=== PATIENT | male | born 1935 | race Caucasian/White ===

== ENCOUNTER 2022-02-13 15:42 | Outpatient (CLI) | payer MEDICARE, BC, SELFPAY | END 2022-02-13 15:43 | disposition home or self-care (01) | LOC: AMB 02-18 19:16 | PROVIDERS: PCP Family Medicine; Visit Provider Family Medicine | DX: R53.1 Weakness (principal) ==

== ENCOUNTER 2022-02-13 18:40 | Outpatient (CLI) | payer MEDICARE, BC, SELFPAY | END 2022-02-13 18:41 | disposition home or self-care (01) | LOC: AMB 02-18 19:44 | PROVIDERS: PCP Family Medicine; Visit Provider Family Medicine | DX: R53.1 Weakness (principal) | CPT/HCPCS: A0425; A0427 ==

== ENCOUNTER 2022-02-13 19:18 | Inpatient (IN) | payer MEDICARE, BC, SELFPAY ==
[2022-02-13 19:27] VITALS: BP 143/54; PULSE 80; RESP 18; TEMP 36.8; O2SAT 96
--- NOTE | 2022-02-13 19:42 | ED.WEAKNESS ---
HPI - Weakness General Chief complaint: Weakness Stated complaint: Weakness Time Seen by Provider: 02/13/22 19:29 History of Present Illness HPI Narrative: This 86-year-old male comes in by ambulance because of generalized weakness that apparently began today. He states that he normally ambulates with a cane but had difficulty doing so today. He reports some knee pain which is chronic. There is no new injury or worsening in this regard. He denies having any fevers. He denies any symptoms of dysuria however the triage report states that his urine was darker recently. He does appear to be incontinent of urine. Related Data Allergies Allergy/AdvReac Type Severity Reaction Status Date / Time No Known Drug Allergies Allergy Verified 02/13/22 19:33 Review of Systems Status of ROS: Reports: 10 or more systems reviewed and unremarkable except as noted in History and below Narrative: Review of systems is limited as patient is a poor historian. Exam Narrative: Exam Narrative: Constitutional: Well-developed, well-nourished, no acute distress. HEENT: Normocephalic, atraumatic. Neck: Normal range of motion. Nontender. Supple. Heart: Regular. No murmurs. Normal rate. Intact distal pulses. Lungs: Clear to auscultation. No chest discomfort. No wheezes, rhonchi, or rales. Abdomen: Normal bowel sounds. Nontender. No rebound tenderness. Genitalia: Deferred. Back: No midline tenderness. Normal range of motion. Extremities: Normal range of motion. No injury. Skin: Intact. No rash. Warm. No erythema or pallor. Neurologic: No altered sensation.. Psychiatric: No suicidality. No anxiety or depression. No insomnia. Nursing notes and vitals signs are reviewed. Const: Vital Signs, click to edit/add: Vital Signs - 24 hr 02/13/22 19:27 Temperature 98.2 F Pulse Rate [Left P ulse Oximeter] 80 Respiratory Rate 18 Blood Pressure [Ri ght Upper Arm] 143/54 H Pulse Oximetry 96 Course Vital Signs Vital signs: Initial Vital Signs Temperature 98.2 F 02/13/22 19:27 Temperature Source Temporal Artery Scan 02/13/22 19:27 Pulse Rate 80 02/13/22 19:27 Pulse Rhythm 02/13/22 19:27 Respiratory Rate 18 02/13/22 19:27 Blood Pressure 143/54 H 02/13/22 19:27 Blood Pressure Mean 83 02/13/22 19:27 Blood Pressure Position Semi-Fowlers 02/13/22 19:27 Pulse Oximetry 96 02/13/22 19:27 Oxygen Delivery Method 02/13/22 19:27 Vital Signs Temperature 98.2 F 02/13/22 19:27 Pulse Rate 80 02/13/22 19:27 Respiratory Rate 18 02/13/22 19:27 Blood Pressure 143/54 H 02/13/22 19:27 Pulse Oximetry 96 02/13/22 19:27 Temperature 98.2 F 02/13/22 19:27 Pulse Rate 80 02/13/22 19:27 Respiratory Rate 18 02/13/22 19:27 Blood Pressure 143/54 H 02/13/22 19:27 Pulse Oximetry 96 02/13/22 19:27 MDM - Weakness MDM Narrative Medical decision making narrative: This patient comes in reporting generalized weakness today. He arrives with normal vital signs and does not have any complaints except he states that he has knees that have been replaced but they were giving him some pain. Lab results returned with reassuring findings. There are no explanations in his labs or vital signs to explain his feeling of weakness. The patient states that he feels okay to return home and is reassured with these results. He does state that his knees have been giving him problems in this may be more of the focus for his report of being weak. Lab Data Labs: Lab Results 02/13/22 02/13/22 02/13/22 Range/Units 20:30 20:30 20:55 WBC 6.78 (4.50-11.00) K/uL RBC 3.08 L (4.30-5.90) m/uL Hgb 10.1 L (13.5-17.5) gm/dL Hct 30.8 L (37.0-53.0) % MCV 100 (80-100) fL MCH 33 (26-34) pg MCHC 33 (32-36) gm/dL RDW Coeff of Erna 13.0 (11.5-15.5) % Plt Count 177 (140-440) K/uL Neut % (Auto) 78.7 H (42.0-72.0) % Lymph % (Auto) 10.3 L (20-44) % [place] % (Auto) 10.6 (0.0-11.0) % Eos % (Auto) 0.0 (0.0-7.0) % Baso % (Auto) 0.1 (0.0-3.0) % Neut # (Auto) 5.30 (1.7-7.0) K/uL Lymph # (Auto) 0.70 L (0.90-2.90) K/uL [place] # (Auto) 0.70 (0.00-0.90) K/UL Eos # (Auto) 0.00 (0.00-0.50) K/uL Baso # (Auto) 0.01 (0.00-0.30) K/uL Abs Immat Gran (auto) 0.02 (0.00-0.30) K/uL Sodium 138 (135-149) mmol/L Potassium 3.6 (3.6-5.1) mmol/L Chloride 108 (96-114) mmol/L Carbon Dioxide 21 (20-32) mmol/L BUN 41 H (7-30) mg/dL Creatinine 1.6 H (0.5-1.5) mg/dL Estimated GFR 42 ml/min Glucose 173 H (60-115) mg/dL Calcium 8.9 (8.4-10.6) mg/dL Urine Color Yellow (Yellow) Urine Appearance Clear (Clear) Urine pH 5.5 (5.0-8.5) Ur Specific [place] 1.015 (1.000-1.030) Urine Protein 1+ A (Negative) Urine Glucose (UA) Negative (Negative) Urine Ketones Negative (Negative) Urine Blood 2+ A (Negative) Urine Nitrite Negative (Negative) Urine Bilirubin Negative (Negative) Urine Urobilinogen 0.2 (0.2-1.0) Ur Leukocyte Esterase Negative (Negative) Urine RBC 0-2 (0-2) Urine WBC 0-2 (0-5) Ur Squamous Epith Cells None (None-Few) Urine Bacteria None (None) Discharge Plan Discharge Clinical Impression: Weakness Patient Disposition: Home, Self-Care Condition: Stable Instructions: Weakness (ED) Additional Instructions: Continue current plans. Follow up with MD or return if worsening symptoms happen. Follow Up/Referrals: Jesus Zapien MD [Primary Care Provider] - Stand Alone Forms: [employer] Info Instructions
[2022-02-13 21:19] LABS: Basophils Absolute Auto 0.01 K/uL (0.00-0.30); Basophils Percent Auto 0.1 % (0.0-3.0); Hematocrit 30.8 % (37.0-53.0); Hemoglobin* 10.1 gm/dL (13.5-17.5); Immature Granulocytes Abs Auto 0.02 K/uL (0.00-0.30); Lymphocytes Percent Auto 10.3 % (20-44); Mean Corpuscular HGB Conc 33 gm/dL (32-36); Mean Corpuscular Hemoglobin 33 pg (26-34); Mean Corpuscular Volume 100 fL (80-100); Monocytes Percent Auto 10.6 % (0.0-11.0); Neutrophils Percent Auto 78.7 % (42.0-72.0); Platelet Count* 177 K/uL (140-440); Red Blood Count 3.08 m/uL (4.30-5.90); White Blood Count* 6.78 K/uL (4.50-11.00)
[2022-02-13 21:21] LABS: Appearance Urine Clear (Clear); Bilirubin Urine Negative (Negative); Blood Urine 2+ (Negative); Color Urine Yellow (Yellow); Glucose Urine Negative (Negative); Ketones Urine Negative (Negative); Leukocyte Esterase Urine Negative (Negative); Nitrite Urine Negative (Negative); Protein Urine 1+ (Negative); Specific Gravity Urine 1.015 (1.000-1.030); Urobilinogen Urine 0.2 (0.2-1.0); pH Urine 5.5 (5.0-8.5)
[2022-02-13 21:27] LABS: Slide Review Reflex No
[2022-02-13 21:28] LABS: RBC Urine 0-2 (0-2); WBC Urine 0-2 (0-5)
[2022-02-13 21:40] LABS: Chloride* 108 mmol/L (96-114); Potassium* 3.6 mmol/L (3.6-5.1); Sodium* 138 mmol/L (135-149)
[2022-02-13 21:41] LABS: Blood Urea Nitrogen* 41 mg/dL (7-30); Calcium* 8.9 mg/dL (8.4-10.6); Carbon Dioxide* 21 mmol/L (20-32); Creatinine* 1.6 mg/dL (0.5-1.5); Estimated Glomerular Filt Rate 42 ml/min; Glucose* 173 mg/dL (60-115)
[2022-02-13 23:58] LABS: PCR FLU A Negative PCR FLU A (Negative); PCR FLU B Negative PCR FLU B (Negative); SARS PCR* POSITIVE SARS-CoV-2 (Negative)
[2022-02-14] VITALS (7 sets, daily range): BP systolic 131–155; BP diastolic 55–67; PULSE 64–79; RESP 18–20; TEMP 37–37.4; O2SAT 93–96; BMI 26.9
--- NOTE | 2022-02-14 01:20 | ED.NURSE ---
Rosa paged for admission.
--- NOTE | 2022-02-14 01:34 | CRLHL7_ITS ---
For Patients: As a result of the Century Cures Act, medical imaging exams and procedure reports are released immediately into your electronic medical record. You may view this report before your referring provider. If you have questions, please contact your health care provider. INDICATION: Weakness. COMPARISON: 03/03/2017. TECHNIQUE: Chest one-view. FINDINGS: Cardiac silhouette is enlarged. Low lung volumes. Elevation of the right hemidiaphragm. Left basilar retrocardiac atelectasis/consolidation. No significant pleural effusion or pneumothorax. IMPRESSION: Low lung volumes. Elevation of the right hemidiaphragm. Cardiac silhouette enlargement which could be accentuated due to portable technique and low lung volumes. Left basilar atelectasis/consolidation. Dictated by Efrain Singletary MD @ 02/14/2022 3:16:35 AM (Electronically Signed)
--- NOTE | 2022-02-14 02:57 | PM.IMCN1 ---
Date of Consult Primary Care Provider: Jesus Zapien MD Consult Narrative Narrative: Patric Duarte Hospitalist ADMISSION SUPPORT NOTE eHospitalist was contacted by Dr. Vargas with request of admission support. Chief complaint: Cough and weakness HPI: The patient reports that for the past few days he has had cough that has been productive. He had a fall at home because he reports he was in a confined space and could not really move around. He fell on his buttocks. He came to the ED for evaluation and was found to be positive for COVID and per the ED provider he is significantly weak and so is unable to be discharged home because of safety concerns. He does complain of pain in both knees which has been chronic but has been limiting his ability to mobilize. Home Medications: Reviewed see EMR for details Pertinent Medical History: DM2, chronic kidney disease, BPH, paroxysmal SVT, coronary disease, carotid artery disease, cervical degenerative disc disease, chronic lymphocytic leukemia in remission, dyslipidemia, hypertension, anxiety/depression, reflux esophagitis, knee replacement Pertinent Social History: , denies any drugs alcohol or smoking Review of Systems Status of ROS: Reports: 10 or more systems reviewed and unremarkable except as noted in History and below [facility] Medical History (Updated 02/14/22 @ 04:08 by Efrain Diaz MD) BPH (benign prostatic hyperplasia) Chronic kidney disease (CKD) stage G3a/A2, moderately decreased glomerular filtration rate (GFR) between 45-59 mL/min/1.73 square meter and albuminuria creatinine ratio between 30-299 mg/g CLL (chronic lymphocytic leukemia) COVID-19 virus infection Generalized anxiety disorder GERD (gastroesophageal reflux disease) Hypertension Major depression Presbyacusis PSVT (paroxysmal supraventricular tachycardia) Type 2 diabetes mellitus Surgical History (Updated 02/14/22 @ 04:04 by Efrain Diaz MD) History of tonsillectomy History of total knee arthroplasty Social History (Updated 02/14/22 @ 04:05 by Efrain Diaz MD) Narrative: , retired, nonsmoker, Highest level of school completed/degree received: Master's degree Smoking Status: Never smoker Do you use any of these nicotine containing products: None Second hand tobacco smoke exposure: No How often do you have a drink containing alcohol: never How often do you have six or more drinks on one occasion: Never AUDIT-C Alcohol total score: 0 Non-prescribed substance use: denies use Caffeine: Yes (POP 1-2 DAILY) service: Yes Meds Home Medications and Allergies Allergies Allergy/AdvReac Type Severity Reaction Status Date / Time No Known Drug Allergies Allergy Verified 02/13/22 19:33 Exam Narrative: Exam Narrative: Exam (performed via interactive video with assistance of bedside nurse): General: Alert, cooperative, no acute distress HEENT: Oral mucosa pink and moist without erythema Lungs: Clear to auscultation bilaterally without wheeze however crackles at right lung base CV: Regular rate and rhythm without loud murmur rub or gallop Ext: Trace ankle edema Skin: No rashes, bruises or lesions appreciated on gross visualization of exposed skin Neuro: Alert, oriented x 3. CN III -VII, XI, XII grossly intact, moves all extremities without any significant focal deficit appreciated Musc: Bilateral knee swelling worse on left than right, slightly warm to touch Per bedside nurse report Const: Vital Signs, click to edit/add: Vital Signs - 24 hr 02/13/22 19:27 Temperature 98.2 F Pulse Rate [Left P ulse Oximeter] 80 Respiratory Rate 18 Blood Pressure [Ri ght Upper Arm] 143/54 H Pulse Oximetry 96 Labs Labs: Short CBC 02/13/22 Range/Units 20:30 WBC 6.78 (4.50-11.00) K/uL Hgb 10.1 L (13.5-17.5) gm/dL Hct 30.8 L (37.0-53.0) % Plt Count 177 (140-440) K/uL BMP 02/13/22 20:30 Sodium 138 Potassium 3.6 Chloride 108 Carbon Dioxide 21 BUN 41 H Creatinine 1.6 H Glucose 173 H Calcium 8.9 Urine 02/13/22 Range/Units 20:55 Urine Color Yellow (Yellow) Urine Appearance Clear (Clear) Urine pH 5.5 (5.0-8.5) Ur Specific [place] 1.015 (1.000-1.030) Urine Protein 1+ A (Negative) Urine Glucose (UA) Negative (Negative) Assessment and Plan Assessment and plan (1) COVID-19 virus infection: Status: Acute (2) Weakness: Status: Acute Plan Assessment and Plan: 1. Weakness-likely secondary to COVID infection with combination of chronic knee pain. Continue supportive care 2. COVID infection-continue supportive care. He reports being vaccinated and bolstered 3. DM2-placed on sliding scale insulin. Stable 4. Depression-stable continue antidepressants once medications reconciled 5. BPH-stable continue Flomax once reconciled 6. CLL-stable in remission 7. Coronary artery disease-stable monitor 8. CKD-stable monitor 9. Dyslipidemia-stable continue statin once reconciled 10. Hypertension-stable continue antihypertensive once medications reconciled 11. Reflux esophagitis-continue Protonix 12. DVT prophylaxis-Lovenox 13. CODE STATUS full code per documentation Chart review was performed as well as evaluation of the patient via video. Thank you for involving ehospitalist. Please contact [phone] if further assistance is needed.
--- NOTE | 2022-02-14 04:06 | ED_ITS ---
HPI - General Adult General Chief complaint: Weakness Stated complaint: Weakness Time Seen by Provider: 02/13/22 19:29 Related Data Allergies Allergy/AdvReac Type Severity Reaction Status Date / Time No Known Drug Allergies Allergy Verified 02/13/22 19:33 [facility] Medical History (Updated 02/14/22 @ 04:08 by Efrain Diaz MD) BPH (benign prostatic hyperplasia) Chronic kidney disease (CKD) stage G3a/A2, moderately decreased glomerular filtration rate (GFR) between 45-59 mL/min/1.73 square meter and albuminuria creatinine ratio between 30-299 mg/g CLL (chronic lymphocytic leukemia) COVID-19 virus infection Generalized anxiety disorder GERD (gastroesophageal reflux disease) Hypertension Major depression Presbyacusis PSVT (paroxysmal supraventricular tachycardia) Type 2 diabetes mellitus Surgical History (Updated 02/14/22 @ 04:04 by Efrain Diaz MD) History of tonsillectomy History of total knee arthroplasty Social History (Updated 02/14/22 @ 04:05 by Efrain Diaz MD) Narrative: , retired, nonsmoker, Highest level of school completed/degree received: Master's degree Smoking Status: Never smoker Do you use any of these nicotine containing products: None Second hand tobacco smoke exposure: No How often do you have a drink containing alcohol: never How often do you have six or more drinks on one occasion: Never AUDIT-C Alcohol total score: 0 Non-prescribed substance use: denies use Caffeine: Yes (POP 1-2 DAILY) service: Yes Exam Const: Vital Signs, click to edit/add: Vital Signs - 24 hr 02/13/22 19:27 Temperature 98.2 F Pulse Rate [Left P ulse Oximeter] 80 Respiratory Rate 18 Blood Pressure [Ri ght Upper Arm] 143/54 H Pulse Oximetry 96 Course Vital Signs Vital signs: Initial Vital Signs Temperature 98.2 F 02/13/22 19:27 Temperature Source Temporal Artery Scan 02/13/22 19:27 Pulse Rate 80 02/13/22 19:27 Pulse Rhythm 02/13/22 19:27 Respiratory Rate 18 02/13/22 19:27 Blood Pressure 143/54 H 02/13/22 19:27 Blood Pressure Mean 83 02/13/22 19:27 Blood Pressure Position Semi-Fowlers 02/13/22 19:27 Pulse Oximetry 96 02/13/22 19:27 Oxygen Delivery Method 02/13/22 19:27 Vital Signs Temperature 98.2 F 02/13/22 19:27 Pulse Rate 80 02/13/22 19:27 Respiratory Rate 18 02/13/22 19:27 Blood Pressure 143/54 H 02/13/22 19:27 Pulse Oximetry 96 02/13/22 19:27 Temperature 99.4 F 02/14/22 03:44 Pulse Rate 79 02/14/22 03:44 Respiratory Rate 20 02/14/22 03:44 Blood Pressure 155/67 H 02/14/22 03:44 Pulse Oximetry 96 02/14/22 03:44 Medical Decision Making Lab Data Labs: Lab Results 02/13/22 02/13/22 02/13/22 Range/Units 20:30 20:30 20:55 WBC 6.78 (4.50-11.00) K/uL RBC 3.08 L (4.30-5.90) m/uL Hgb 10.1 L (13.5-17.5) gm/dL Hct 30.8 L (37.0-53.0) % MCV 100 (80-100) fL MCH 33 (26-34) pg MCHC 33 (32-36) gm/dL RDW Coeff of Erna 13.0 (11.5-15.5) % Plt Count 177 (140-440) K/uL Neut % (Auto) 78.7 H (42.0-72.0) % Lymph % (Auto) 10.3 L (20-44) % [place] % (Auto) 10.6 (0.0-11.0) % Eos % (Auto) 0.0 (0.0-7.0) % Baso % (Auto) 0.1 (0.0-3.0) % Neut # (Auto) 5.30 (1.7-7.0) K/uL Lymph # (Auto) 0.70 L (0.90-2.90) K/uL [place] # (Auto) 0.70 (0.00-0.90) K/UL Eos # (Auto) 0.00 (0.00-0.50) K/uL Baso # (Auto) 0.01 (0.00-0.30) K/uL Abs Immat Gran (auto) 0.02 (0.00-0.30) K/uL Sodium 138 (135-149) mmol/L Potassium 3.6 (3.6-5.1) mmol/L Chloride 108 (96-114) mmol/L Carbon Dioxide 21 (20-32) mmol/L BUN 41 H (7-30) mg/dL Creatinine 1.6 H (0.5-1.5) mg/dL Estimated GFR 42 ml/min Glucose 173 H (60-115) mg/dL Calcium 8.9 (8.4-10.6) mg/dL Urine Color Yellow (Yellow) Urine Appearance Clear (Clear) Urine pH 5.5 (5.0-8.5) Ur Specific [place] 1.015 (1.000-1.030) Urine Protein 1+ A (Negative) Urine Glucose (UA) Negative (Negative) Urine Ketones Negative (Negative) Urine Blood 2+ A (Negative) Urine Nitrite Negative (Negative) Urine Bilirubin Negative (Negative) Urine Urobilinogen 0.2 (0.2-1.0) Ur Leukocyte Esterase Negative (Negative) Urine RBC 0-2 (0-2) Urine WBC 0-2 (0-5) Ur Squamous Epith Cells None (None-Few) Urine Bacteria None (None) SARS-CoV-2 (PCR) (Negative) Influenza Type A (PCR) (Negative) Influenza Type B (PCR) (Negative) 02/13/22 Range/Units 22:40 WBC (4.50-11.00) K/uL RBC (4.30-5.90) m/uL Hgb (13.5-17.5) gm/dL Hct (37.0-53.0) % MCV (80-100) fL MCH (26-34) pg MCHC (32-36) gm/dL RDW Coeff of Erna (11.5-15.5) % Plt Count (140-440) K/uL Neut % (Auto) (42.0-72.0) % Lymph % (Auto) (20-44) % [place] % (Auto) (0.0-11.0) % Eos % (Auto) (0.0-7.0) % Baso % (Auto) (0.0-3.0) % Neut # (Auto) (1.7-7.0) K/uL Lymph # (Auto) (0.90-2.90) K/uL [place] # (Auto) (0.00-0.90) K/UL Eos # (Auto) (0.00-0.50) K/uL Baso # (Auto) (0.00-0.30) K/uL Abs Immat Gran (auto) (0.00-0.30) K/uL Sodium (135-149) mmol/L Potassium (3.6-5.1) mmol/L Chloride (96-114) mmol/L Carbon Dioxide (20-32) mmol/L BUN (7-30) mg/dL Creatinine (0.5-1.5) mg/dL Estimated GFR ml/min Glucose (60-115) mg/dL Calcium (8.4-10.6) mg/dL Urine Color (Yellow) Urine Appearance (Clear) Urine pH (5.0-8.5) Ur Specific [place] (1.000-1.030) Urine Protein (Negative) Urine Glucose (UA) (Negative) Urine Ketones (Negative) Urine Blood (Negative) Urine Nitrite (Negative) Urine Bilirubin (Negative) Urine Urobilinogen (0.2-1.0) Ur Leukocyte Esterase (Negative) Urine RBC (0-2) Urine WBC (0-5) Ur Squamous Epith Cells (None-Few) Urine Bacteria (None) SARS-CoV-2 (PCR) POSITIVE SARS-CoV-2 A (Negative) Influenza Type A (PCR) Negative PCR FLU A (Negative) Influenza Type B (PCR) Negative PCR FLU B (Negative) Discharge Plan Discharge Clinical Impression: Weakness Patient Disposition: Admitted As Inpatient Condition: Stable
[2022-02-14] MEDS: 0.9 % SODIUM CHLORIDE 1000 ml 1,000 ML 100 ML IV ×2 (04:44→15:07)
[2022-02-14] MEDS: ACETAMINOPHEN 325 MG TABLET 650 MG PO ×2 (04:47→15:57)
[2022-02-14 07:20] LABS: Basophils Absolute Auto 0.01 K/uL (0.00-0.30); Basophils Percent Auto 0.2 % (0.0-3.0); Hematocrit 26.5 % (37.0-53.0); Hemoglobin* 8.8 gm/dL (13.5-17.5); Immature Granulocytes Abs Auto 0.01 K/uL (0.00-0.30); Lymphocytes Percent Auto 15.8 % (20-44); Mean Corpuscular HGB Conc 33 gm/dL (32-36); Mean Corpuscular Hemoglobin 33 pg (26-34); Mean Corpuscular Volume 99 fL (80-100); Monocytes Percent Auto 13.8 % (0.0-11.0); Neutrophils Absolute Auto 3.87 K/uL (1.7-7.0); Platelet Count* 157 K/uL (140-440); RDW Coefficient of Variation % 12.9 % (11.5-15.5); Red Blood Count 2.67 m/uL (4.30-5.90); White Blood Count* 5.52 K/uL (4.50-11.00)
[2022-02-14 07:22] LABS: Slide Review Reflex No
[2022-02-14 07:30] LABS: Albumin* 3.1 g/dL (3.3-5.0); Chloride* 112 mmol/L (96-114); Sodium* 137 mmol/L (135-149)
[2022-02-14 07:31] LABS: Potassium* 3.1 mmol/L (3.6-5.1)
[2022-02-14 07:33] LABS: Alanine Aminotransferase* 14 U/L (4-50); Alkaline Phosphatase* 53 U/L (40-150); Aspartate Amino Transferase* 43 U/L (12-35); Bilirubin Total* 0.3 mg/dL (0.1-1.5); Blood Urea Nitrogen* 36 mg/dL (7-30); Carbon Dioxide* 19 mmol/L (20-32); Creatinine* 1.5 mg/dL (0.5-1.5); Est. Creatinine Clearance* 35.35; Estimated Glomerular Filt Rate 45 ml/min; Glucose* 132 mg/dL (60-115); Total Protein* 5.2 g/dL (6.0-8.3)
[2022-02-14 07:34] LABS: Calcium* 8.4 mg/dL (8.4-10.6)
--- NOTE | 2022-02-14 08:42 | PC.NURSE ---
END OF SHIFT NOTE: PT PLEASANT AND COOPERATIVE. PT USED URINAL. PT HAD ONE CLOT IN FIRST VOID ON THE FLOOR. NO SUBSEQUENT BLOOD CLOTS NOTED. PT DENIES CHEST PAIN, SOB, N/V. VSS AND WNL ON RA; AFEBRILE. PT C/O LEFT KNEE PAIN (CHRONIC). RELIEF FROM PRN TYLENOL. NOORVIK, WEARS BILATERAL HEARING AIDES. C/O WEAKNESS.
--- NOTE | 2022-02-14 09:20 | PC.NURSE ---
P/C from daughter Chantell, wondering if pt. will be started on any supportive medications r/t COVID infection. Updated MD. Pt. noted would like to make sure venlafaxine is administered today. Verbal order from Dr. Beebe received, entered by pharmacy. Other home meds not yet verified.
[2022-02-14] MEDS: VENLAFAXINE HCL 37.5 MG TABLET PO (09:49)
--- NOTE | 2022-02-14 11:24 | PM.IMHP1 ---
Hospitalist- H&P: HPI History of Present Illness Time Seen by Provider: 11:24 Date Seen: 02/14/22 Chief complaint: Weakness Narrative: Carlos Hill is a 86 year old male who comes in with 2-3 days generalized weakness and fatigue. Evaluation in the emergency room showed evidence COVID-19. Patient had mild anemia noted on his lab work as well as mild hypokalemia. He does have evidence of chronic renal insufficiency with creatinine 1.5. Patient has no other specific complaints but has been increasingly weak and frail over the last 2-3 days. Patient normally lives independently with his in [facility]. No other complaints noted. Review of Systems Status of ROS: Reports: 10 or more systems reviewed and unremarkable except as noted in History and below [facility] Medical History (Updated 02/14/22 @ 11:28 by Lázaro Beebe MD) Anemia BPH (benign prostatic hyperplasia) Chronic kidney disease (CKD) stage G3a/A2, moderately decreased glomerular filtration rate (GFR) between 45-59 mL/min/1.73 square meter and albuminuria creatinine ratio between 30-299 mg/g CLL (chronic lymphocytic leukemia) COVID-19 virus infection Generalized anxiety disorder GERD (gastroesophageal reflux disease) Hypertension Major depression Presbyacusis PSVT (paroxysmal supraventricular tachycardia) Type 2 diabetes mellitus Surgical History History of tonsillectomy History of total knee arthroplasty Social History Narrative: , retired, nonsmoker, Highest level of school completed/degree received: Master's degree Smoking Status: Never smoker Do you use any of these nicotine containing products: None Second hand tobacco smoke exposure: No How often do you have a drink containing alcohol: never How often do you have six or more drinks on one occasion: Never AUDIT-C Alcohol total score: 0 Non-prescribed substance use: denies use Caffeine: Yes (POP 1-2 DAILY) service: Yes Meds Home Medications and Allergies Home Medications Medication Instructions Recorded Confirmed Type amlodipine 10 mg tablet 10 mg PO DAILY 02/14/22 02/14/22 History aspirin 81 mg tablet,delayed 81 mg PO DAILY 02/14/22 02/14/22 History release (Adult Aspirin Regimen) atorvastatin 40 mg tablet 40 mg PO HS 02/14/22 02/14/22 History fosinopril 40 mg tablet 40 mg PO DAILY 02/14/22 02/14/22 History furosemide 20 mg tablet 20 mg PO 3XW PRN 02/14/22 02/14/22 History gemfibrozil 600 mg tablet 600 mg PO BIDWM 02/14/22 02/14/22 History glipizide 10 mg tablet 10 mg PO DAILY 02/14/22 02/14/22 History hydrochlorothiazide 50 mg tablet 50 mg PO DAILY 02/14/22 02/14/22 History metformin 500 mg tablet 500 mg PO DAILY 02/14/22 02/14/22 History metoprolol tartrate 25 mg tablet 25 mg PO BID 02/14/22 02/14/22 History omeprazole 20 mg capsule,delayed 20 mg PO DAILY 02/14/22 02/14/22 History release pioglitazone 30 mg tablet 30 mg PO DAILY 02/14/22 02/14/22 History timolol maleate 0.5 % eye drops 1 drp OPHTHALMIC (EYE) BID 02/14/22 02/14/22 History venlafaxine 37.5 mg tablet 37.5 mg PO DAILY 02/14/22 02/14/22 History vibegron 75 mg tablet (Gemtesa) 75 mg PO DAILY 02/14/22 02/14/22 History Allergies Allergy/AdvReac Type Severity Reaction Status Date / Time No Known Drug Allergies Allergy Verified 02/13/22 19:33 Exam Narrative: Exam Narrative: EXAM GENERAL: Patient appears comfortable and well. EYES: No scleral icterus. LYMPH: No supraclavicular or cervical lymphadenopathy. SKIN: Visible skin seen during exam normal or with benign process only. EXT: No dependent lower extremity pedal edema. HEART: Regular rate and rhythm with no murmurs, rubs, or gallops. LUNGS: Clear to auscultation bilaterally with no crackles or wheezes. ABD: Soft, non tender, non distended. PSYCH: Good eye contact, speech is not pressured. Const: Vital Signs, click to edit/add: Vital Signs - 24 hr 02/13/22 19:27 02/14/22 03:44 02/14/22 07:52 Temperature 98.2 F 99.4 F 99.1 F Pulse Rate [Blood Pressure Cuff] 79 79 Pulse Rate [Left P ulse Oximeter] 80 Pulse Rate [Pulse Oximeter] 79 79 Respiratory Rate 18 20 20 Blood Pressure [Le ft Arm] 155/67 H 131/62 Blood Pressure [Ri ght Upper Arm] 143/54 H Pulse Oximetry 96 96 93 Hospitalist - H&P: Result Labs Labs: Short CBC 02/13/22 02/14/22 Range/Units 20:30 06:51 WBC 6.78 5.52 (4.50-11.00) K/uL Hgb 10.1 L 8.8 L (13.5-17.5) gm/dL Hct 30.8 L 26.5 L (37.0-53.0) % Plt Count 177 157 (140-440) K/uL BMP 02/13/22 02/14/22 20:30 06:51 Sodium 138 137 Potassium 3.6 3.1 L Chloride 108 112 Carbon Dioxide 21 19 L BUN 41 H 36 H Creatinine 1.6 H 1.5 Glucose 173 H 132 H Calcium 8.9 8.4 Liver Function 02/14/22 Range/Units 06:51 Total Bilirubin 0.3 (0.1-1.5) mg/dL AST 43 H (12-35) U/L ALT 14 (4-50) U/L Alkaline Phosphatase 53 (40-150) U/L Albumin 3.1 L (3.3-5.0) g/dL Urine 02/13/22 Range/Units 20:55 Urine Color Yellow (Yellow) Urine Appearance Clear (Clear) Urine pH 5.5 (5.0-8.5) Ur Specific [place] 1.015 (1.000-1.030) Urine Protein 1+ A (Negative) Urine Glucose (UA) Negative (Negative) Assessment and Plan Assessment and plan (1) COVID-19 virus infection: Status: Acute Assessment and Plan: No signs of hypoxia. His chest x-ray is unremarkable. At this time a will continue symptomatic care with isolation consult PT OT. (2) Weakness: Status: Acute Assessment and Plan: As above. (3) Anemia: Status: Acute Assessment and Plan: Encourage good oral intake and follows hemoglobin in the morning. Patient does have CLL. (4) CLL (chronic lymphocytic leukemia): Status: Acute Assessment and Plan: As above. (5) Chronic kidney disease (CKD) stage G3a/A2, moderately decreased glomerular filtration rate (GFR) between 45-59 mL/min/1.73 square meter and albuminuria creatinine ratio between 30-299 mg/g: Status: Acute Assessment and Plan: This appears fairly stable with creatinine of 1 point fine. (6) Hypertension: Status: Acute Assessment and Plan: Continue outpatient management.
[2022-02-14] MEDS: POTASSIUM CHLORIDE 10 MEQ CAPSULE ER 20 MEQ PO ×2 (12:15→17:52)
[2022-02-14] MEDS: METFORMIN 500 MG TABLET PO (12:15)
[2022-02-14] MEDS: glipiZIDE 5 MG TABLET 10 MG PO (12:15)
[2022-02-14] MEDS: AMLODIPINE 10 MG TABLET PO (12:15)
[2022-02-14] MEDS: METOPROLOL TARTRATE 25 MG TABLET PO ×2 (12:15→20:51)
--- NOTE | 2022-02-14 12:36 | PC.NURSE ---
Addendum entered by Farhana Coley RN 02/14/22 15:46: Added: This afternoon pt. able to walk w/walker/belt & SBA to BR. BM today as well as voiding adequately. Denies pain for RN. No more blood noted on brief by RN. Notes feeling slight improvement from AM. Second bag of NS currently infusing for total of 2L. P/C update to juan Abdul today. Questions answered. Original Note: Pt. up w/Ax2 and walker/belt initially to chair, but able to stand w/walker while RN assisted in changing bottoms this morning. More steady second time. Pt. notes new shaking. Temp 99.1 this morning. BGs 108 and 158; sliding scale insulin held d/t restarting of metformin & glipizide @ noon. Declined lunch but took some pudding. Voiding into urinal w/RN assist. Noted to have some old blood spotting on inside of brief, but unsure when this was from. Pt. has been resting off and on. Denies pain. +1 pitting edema in B/L lower extremities, more so in knees (chronic). Updated daughter Chantell via phone.
[2022-02-14] MEDS: gemfibroziL 600 MG TABLET PO (17:52)
[2022-02-14] MEDS: ATORVASTATIN CALCIUM 40 MG TABLET PO (20:51)
[2022-02-14] MEDS: ENOXAPARIN 40 MG/0.4 ML INJ SUBCUT (20:51)
[2022-02-14] MEDS: timoloL maleate 0.5 % 1 DROP EYE-BOTH (20:52)
[2022-02-15] VITALS (7 sets, daily range): BP systolic 108–155; BP diastolic 55–70; PULSE 56–98; RESP 18; TEMP 36.7–37.1; O2SAT 93–98
--- NOTE | 2022-02-15 06:51 | PC.NURSE ---
Alert and orientedx3. Vitals stable overnight. Denies pain. Sats greater than 90% On room air. Ambulating self in the room using a walker. Bedtime BG at 90; given peanut butter sandwich for the night. No other concerns noted overnight.
[2022-02-15 07:22] LABS: Basophils Absolute Auto 0.02 K/uL (0.00-0.30); Basophils Percent Auto 0.3 % (0.0-3.0); Eosinophils Absolute Auto 0.01 K/uL (0.00-0.50); Eosinophils Percent Auto 0.2 % (0.0-7.0); Hematocrit 28.2 % (37.0-53.0); Hemoglobin* 9.4 gm/dL (13.5-17.5); Immature Granulocytes Abs Auto 0.01 K/uL (0.00-0.30); Mean Corpuscular HGB Conc 33 gm/dL (32-36); Mean Corpuscular Hemoglobin 33 pg (26-34); Mean Corpuscular Volume 99 fL (80-100); Monocytes Percent Auto 16.9 % (0.0-11.0); Neutrophils Absolute Auto 3.67 K/uL (1.7-7.0); Neutrophils Percent Auto 63.4 % (42.0-72.0); Platelet Count* 145 K/uL (140-440); RDW Coefficient of Variation % 12.9 % (11.5-15.5); Red Blood Count 2.84 m/uL (4.30-5.90); White Blood Count* 5.79 K/uL (4.50-11.00)
[2022-02-15 07:41] LABS: Albumin* 3.3 g/dL (3.3-5.0); Chloride* 112 mmol/L (96-114)
[2022-02-15 07:42] LABS: Potassium* 3.8 mmol/L (3.6-5.1); Sodium* 138 mmol/L (135-149)
[2022-02-15 07:44] LABS: Alkaline Phosphatase* 56 U/L (40-150); Aspartate Amino Transferase* 61 U/L (12-35); Bilirubin Total* 0.1 mg/dL (0.1-1.5); Carbon Dioxide* 17 mmol/L (20-32); Creatinine* 1.4 mg/dL (0.5-1.5); Est. Creatinine Clearance* 37.88; Estimated Glomerular Filt Rate 49 ml/min; Total Protein* 5.8 g/dL (6.0-8.3)
[2022-02-15 07:45] LABS: Alanine Aminotransferase* 17 U/L (4-50); Blood Urea Nitrogen* 36 mg/dL (7-30); Calcium* 8.5 mg/dL (8.4-10.6); Glucose* 71 mg/dL (60-115)
[2022-02-15 07:53] LABS: Slide Review Reflex No
[2022-02-15] MEDS: ASPIRIN 81 MG TABLET EC PO (08:17)
[2022-02-15] MEDS: METOPROLOL TARTRATE 25 MG TABLET PO ×2 (08:17→21:25)
[2022-02-15] MEDS: timoloL maleate 0.5 % 1 DROP EYE-BOTH ×2 (08:17→21:26)
[2022-02-15] MEDS: gemfibroziL 600 MG TABLET PO ×2 (08:18→18:20)
[2022-02-15] MEDS: OMEPRAZOLE 20 MG CAPSULE DR PO (08:18)
[2022-02-15] MEDS: glipiZIDE 5 MG TABLET 10 MG PO (08:19)
[2022-02-15] MEDS: POTASSIUM CHLORIDE 10 MEQ CAPSULE ER 20 MEQ PO ×2 (08:19→18:20)
--- NOTE | 2022-02-15 09:43 | PM.IMPN1 ---
Progress Note: A&P Assessment and plan (1) COVID-19 virus infection: Status: Acute Assessment and Plan: Continue symptomatic treatment with isolation. (2) Weakness: Status: Acute Assessment and Plan: PT and OT following. Likely discharge tomorrow to continue outpatient isolation. (3) Anemia: Status: Acute Assessment and Plan: Hemoglobin up from 8 0.8-9.4. (4) CLL (chronic lymphocytic leukemia): Status: Acute Assessment and Plan: Chronic will manage as an outpatient. (5) Chronic kidney disease (CKD) stage G3a/A2, moderately decreased glomerular filtration rate (GFR) between 45-59 mL/min/1.73 square meter and albuminuria creatinine ratio between 30-299 mg/g: Status: Acute Assessment and Plan: Creatinine is stable. (6) Hypertension: Status: Acute Assessment and Plan: Vital signs are quite reasonable. Subjective Time Seen by Provider: 09:43 Date Seen: 02/15/22 Interval history: Patient has made solid progress with regards to PT and OT. He remains asymptomatic from respiratory standpoint from his COVID-19. His hemoglobin has gone up. His electrolytes are stable. He is nearing the point where he can safely be discharged home to continue his isolation. He is not receiving any specific therapy for his COVID-19. Exam Narrative: Exam Narrative: EXAM GENERAL: Patient appears comfortable and well. EYES: No scleral icterus. ENT: Tympanic membranes and oropharynx normal. SKIN: Visible skin seen during exam normal or with benign process only. EXT: No dependent lower extremity pedal edema. HEART: Regular rate and rhythm with no murmurs, rubs, or gallops. LUNGS: Clear to auscultation bilaterally with no crackles or wheezes. ABD: Soft, non tender, non distended. PSYCH: Good eye contact, speech is not pressured. Const: Vital Signs, click to edit/add: Vital Signs - 24 hr 02/14/22 12:19 02/14/22 15:30 02/14/22 21:00 Temperature 98.8 F Pulse Rate [Blood Pressure Cuff] 75 69 Pulse Rate [Pulse Oximeter] 65 69 Respiratory Rate 20 18 18 Blood Pressure [Le ft Arm] 142/55 H 134/59 L Blood Pressure [Ri ght Arm] Pulse Oximetry 94 96 02/14/22 23:00 02/15/22 03:00 02/15/22 08:04 Temperature 98.6 F 98.1 F 98.8 F Pulse Rate [Blood Pressure Cuff] 64 64 Pulse Rate [Pulse Oximeter] 64 98 Respiratory Rate 20 18 18 Blood Pressure [Le ft Arm] 145/58 H 155/70 H Blood Pressure [Ri ght Arm] 108/58 L Pulse Oximetry 93 93 97 Labs Labs: Laboratory Results - last 24 hr 02/15/22 02/15/22 07:05 07:05 WBC 5.79 RBC 2.84 L Hgb 9.4 L Hct 28.2 L MCV 99 MCH 33 MCHC 33 RDW Coeff of Erna 12.9 Plt Count 145 Neut % (Auto) 63.4 Lymph % (Auto) 19.0 L [place] % (Auto) 16.9 H Eos % (Auto) 0.2 Baso % (Auto) 0.3 Neut # (Auto) 3.67 Lymph # (Auto) 1.10 [place] # (Auto) 1.00 H Eos # (Auto) 0.01 Baso # (Auto) 0.02 Abs Immat Gran (auto) 0.01 Sodium 138 Potassium 3.8 Chloride 112 Carbon Dioxide 17 L BUN 36 H Creatinine 1.4 Estimated Creat Clear 37.88 Estimated GFR 49 Glucose 71 Calcium 8.5 Total Bilirubin 0.1 AST 61 H ALT 17 Alkaline Phosphatase 56 Total Protein 5.8 L Albumin 3.3
[2022-02-15] MEDS: PIOGLITAZONE HCL 15 MG TABLET 30 MG PO (10:00)
[2022-02-15] MEDS: VENLAFAXINE HCL 37.5 MG TABLET PO (10:00)
[2022-02-15] MEDS: METFORMIN 500 MG TABLET PO (12:27)
--- NOTE | 2022-02-15 14:29 | PC.NURSE ---
Pt. ambulating in room with walker, transfer belt and SBA. O2 sats 97% RA. Fine crackles to bilateral lung bases. Denies pain.
[2022-02-15] MEDS: ATORVASTATIN CALCIUM 40 MG TABLET PO (21:26)
[2022-02-15] MEDS: ENOXAPARIN 40 MG/0.4 ML INJ SUBCUT (21:26)
--- NOTE | 2022-02-15 22:58 | PC.NURSE ---
End of Shift: Patient pleasant and cooperative. Afebrile. Rating chronic pain in bilateral knees 4/10 and declined PRN pain medication or ice/heat. Up to bathroom and chair with SBA and walker. Tolerating regular diet with no nausea. O2 sats 97-98% on room air.
[2022-02-16 03:10] VITALS: BP 163/65; PULSE 86; RESP 22; TEMP 36.8; O2SAT 91
[2022-02-16] MEDS: OMEPRAZOLE 20 MG CAPSULE DR PO (06:17)
--- NOTE | 2022-02-16 06:41 | PC.NURSE ---
END OF SHIFT NOTE: PT PLEASANT AND COOPERATIVE. VSS AND WNL ON RA; AFEBRILE. AMBULATES WITH CANE OR WALKER AND SBA. NOT USING CALL LIGHT APPROPRIATELY; BED ALARM UTILIZED NOC. PT EXTREMELY [place]. PT USES URINAL AT BEDSIDE. DENIES CHEST PAIN, SOB, N/V.
[2022-02-16 07:31] VITALS: BP 134/81; PULSE 96; RESP 18; TEMP 37.1; O2SAT 97
[2022-02-16] MEDS: FOSINOPRIL SODIUM 20 MG TABLET 40 MG PO (09:04)
[2022-02-16] MEDS: POTASSIUM CHLORIDE 10 MEQ CAPSULE ER 20 MEQ PO (09:04)
[2022-02-16] MEDS: AMLODIPINE 10 MG TABLET PO (09:04)
[2022-02-16] MEDS: hydroCHLOROthiazide 25 MG TABLET 50 MG PO (09:04)
[2022-02-16] MEDS: gemfibroziL 600 MG TABLET PO (09:04)
[2022-02-16] MEDS: ASPIRIN 81 MG TABLET EC PO (09:04)
[2022-02-16] MEDS: VENLAFAXINE HCL 37.5 MG TABLET PO (09:05)
[2022-02-16] MEDS: glipiZIDE 5 MG TABLET 10 MG PO (09:05)
[2022-02-16] MEDS: METOPROLOL TARTRATE 25 MG TABLET PO (09:05)
[2022-02-16] MEDS: PIOGLITAZONE HCL 15 MG TABLET 30 MG PO (09:05)
[2022-02-16] MEDS: timoloL maleate 0.5 % 1 DROP EYE-BOTH (09:05)
--- NOTE | 2022-02-16 09:36 | PM.DS1 ---
DS: Providers Provider Date Seen: 02/16/22 Date of admission: 02/14/22 02:48 Primary care physician: Jesus Zapien MD Admitting Clinician: Efrain Diaz MD Consults: 02/14/22 04:27 Consult to Physical Therapy [CONS] Routine Comment: Reason(s) for PT Consult:: Evaluate Ambulation Any Restrictions?:: Unknown 02/14/22 11:31 Consult to Occupational Therapy [CONS] Routine Comment: Reason(s) for OT Consult:: Difficulty Managing ADLs Any Restrictions?:: No Restrictions Consult to Physical Therapy [CONS] Routine Comment: Reason(s) for PT Consult:: Evaluate Ambulation Any Restrictions?:: No Restrictions Attending Physician on discharge: Efrain Diaz MD DS: Diagnosis Discharge Diagnosis (1) COVID-19 virus infection: Status: Acute (2) Weakness: Status: Acute (3) Anemia: Status: Acute (4) CLL (chronic lymphocytic leukemia): Status: Acute (5) Chronic kidney disease (CKD) stage G3a/A2, moderately decreased glomerular filtration rate (GFR) between 45-59 mL/min/1.73 square meter and albuminuria creatinine ratio between 30-299 mg/g: Status: Acute (6) Hypertension: Status: Acute DS: Summary Hospital Course Hospital Course: Patient is a 86-year-old gentleman who was admitted for weakness related to COVID-19 pneumonia. He had no supplemental oxygen needs. We did place him in isolation and continue his outpatient care as well as physical and occupational therapy. Patient made steady improvement and is now returned to his previous level of activity. He feels well and is ready for discharge home. Status at Discharge Functional status at discharge: independent ambulation Overall status at discharge: patient is back to baseline Time Spent with Patient Time attestation: Total time spent providing and/or coordinating discharge services: Time spent: Greater than 30 minutes Exam Narrative: Exam Narrative: EXAM GENERAL: Patient appears comfortable and well. EYES: No scleral icterus. LYMPH: No supraclavicular or cervical lymphadenopathy. SKIN: Visible skin seen during exam normal or with benign process only. EXT: No dependent lower extremity pedal edema. HEART: Regular rate and rhythm with no murmurs, rubs, or gallops. LUNGS: Clear to auscultation bilaterally with no crackles or wheezes. ABD: Soft, non tender, non distended. PSYCH: Good eye contact, speech is not pressured. Const: Vital Signs, click to edit/add: Vital Signs - 24 hr 02/15/22 12:22 02/15/22 15:00 02/15/22 16:00 Temperature 98.8 F 98.2 F Pulse Rate [Blood Pressure Cuff] Pulse Rate [Pulse Oximeter] 56 L 61 Respiratory Rate 18 18 18 Blood Pressure [Le ft Arm] Blood Pressure [Ri ght Arm] 120/62 124/57 L Pulse Oximetry 97 98 02/15/22 19:00 02/15/22 23:45 02/16/22 03:10 Temperature 98.3 F 98.3 F 98.2 F Pulse Rate [Blood Pressure Cuff] 61 86 Pulse Rate [Pulse Oximeter] 60 Respiratory Rate 18 18 22 Blood Pressure [Le ft Arm] 149/55 H Blood Pressure [Ri ght Arm] 145/70 H 163/65 H Pulse Oximetry 97 97 91 02/16/22 07:31 Temperature 98.7 F Pulse Rate [Blood Pressure Cuff] 96 Pulse Rate [Pulse Oximeter] Respiratory Rate 18 Blood Pressure [Le ft Arm] Blood Pressure [Ri ght Arm] 134/81 Pulse Oximetry 97 Discharge Plan Discharge Disposition: Home, Self-Care Date of Admission: 02/14/22 02:48 Attending Provider on Discharge: Lázaro Beebe Primary Care Provider: Jesus Zapien Condition: Stable Anticipated Discharge Date/Time: 02/16/22 09:34 Discharge Medications: Continued venlafaxine 37.5 mg tablet 37.5 mg PO DAILY 0RF amlodipine 10 mg tablet 10 mg PO DAILY 0RF atorvastatin 40 mg tablet 40 mg PO HS 0RF fosinopril 40 mg tablet 40 mg PO DAILY 0RF furosemide 20 mg tablet 20 mg PO 3XW PRN (Reason: edema) 0RF Label Comments: TAKE 1 TABLET BY MOUTH 3 TIMES EVERY WEEK FOR SWELLING gemfibrozil 600 mg tablet 600 mg PO BIDWM 0RF glipizide 10 mg tablet 10 mg PO DAILY 0RF hydrochlorothiazide 50 mg tablet 50 mg PO DAILY 0RF metformin 500 mg tablet 500 mg PO DAILY 0RF Label Comments: TAKE 1 TABLET BY MOUTH DAILY WITH THE EVENING MEAL metoprolol tartrate 25 mg tablet 25 mg PO BID 0RF omeprazole 20 mg capsule,delayed release(DR/EC) 20 mg PO DAILY 0RF pioglitazone 30 mg tablet 30 mg PO DAILY 0RF timolol maleate 0.5 % drops 1 drp OPHTHALMIC (EYE) BID 0RF Label Comments: INSTILL 1 DROP IN LEFT EYE TWICE DAILY Gemtesa 75 mg tablet 75 mg PO DAILY 0RF Label Comments: TAKE ONE TABLET BY MOUTH ONCE DAILY. aspirin [Adult Aspirin Regimen] 81 mg tablet,delayed release (DR/EC) 81 mg PO DAILY 0RF Discharge Orders: Discharge Order (Routine); Ordered 02/16/22 Ordered By: Lázaro Beebe Patient Education: Weakness (ED) Activity Restrictions/Additional Instructions: Continue current plans. Follow up with MD or return if worsening symptoms happen. Activity Level: No Restrictions Activity Detail: Maintain COVID isolation per protocol Discharge Diet: Regular Follow Up Appointments: Jesus Zapien MD [Primary Care Provider] - None Forms: [employer] Info Instructions
--- NOTE | 2022-02-16 12:21 | PC.NURSE ---
Addendum entered by Monica Mendenhall RN 02/16/22 13:54: Blood glucose this morning @ 0730 was 95. Sliding scale novolog not needed. Original Note: Discharge: Patient pleasant and cooperative. Alert and oriented. Up with SBA and cane. IV removed with catheter intact. Vitals stable and WNL, o2 sat >90% on RA. Discharge instructions given and reviewed, no changes in medication orders. Patient wheeled from floor to own car, discharged @ 1200 to home, left via own private vehicle.
== END 2022-02-16 12:00 | disposition home or self-care (01) | DRG 177 ==
LOC: ED 22:28 → MEDSURG 02-14 02:49
PROVIDERS: Internal Medicine; Admitting Provider Family Medicine; Emergency Provider Emergency Medicine Emergency Medical Services; PCP Family Medicine; Visit Provider Family Medicine
DX: U07.1 COVID-19 (principal); J12.82 Pneumonia due to coronavirus disease 2019; C91.11 Chronic lymphocytic leukemia of B-cell type in remission; I12.9 Hypertensive chronic kidney disease with stage 1 through stage 4 chronic kidney disease, or unspecified chronic kidney disease; E11.22 Type 2 diabetes mellitus with diabetic chronic kidney disease; N18.31 Chronic kidney disease, stage 3a; Z79.4 Long term (current) use of insulin; R53.1 Weakness; N40.0 Benign prostatic hyperplasia without lower urinary tract symptoms; I25.10 Atherosclerotic heart disease of native coronary artery without angina pectoris; K21.00 Gastro-esophageal reflux disease with esophagitis, without bleeding; G89.29 Other chronic pain; M25.569 Pain in unspecified knee; F41.1 Generalized anxiety disorder; F32.9 Major depressive disorder, single episode, unspecified; D64.9 Anemia, unspecified; E87.6 Hypokalemia; E78.5 Hyperlipidemia, unspecified
CPT/HCPCS: 36415; 71045; 80048; 80053; 81001; 85025; 87502; 87635; 97116; 97162; 97165; 97530; 99284; A9270; J1650; J7030

== ENCOUNTER 2023-09-27 14:30 | Outpatient (RCR) | payer MEDICARE, BC, SELFPAY | END 2024-01-25 23:59 | disposition home or self-care (01) | PROVIDERS: PCP Family Medicine; Visit Provider Student in an Organized Health Care Education/Training Program | DX: Z74.09 Other reduced mobility (principal); R53.81 Other malaise; Z51.89 Encounter for other specified aftercare | CPT/HCPCS: 97165; 97530; 97535 ==

== ENCOUNTER 2023-11-14 16:38 | Outpatient (CLI) | payer MEDICARE, BC, SELFPAY | END 2023-11-14 16:39 | disposition home or self-care (01) | LOC: AMB 11-17 12:18 | PROVIDERS: PCP Student in an Organized Health Care Education/Training Program; Visit Provider Emergency Medicine Emergency Medical Services | DX: S79.912A Unspecified injury of left hip, initial encounter (principal); W19.XXXA Unspecified fall, initial encounter; Y92.009 Unspecified place in unspecified non-institutional (private) residence as the place of occurrence of the external cause | CPT/HCPCS: A0425; A0427 ==

== ENCOUNTER 2023-11-14 17:20 | Inpatient (IN) | payer MEDICARE, BC, SELFPAY ==
[2023-11-14 17:28] VITALS: BP 155/78; PULSE 60; RESP 16; TEMP 36.4; O2SAT 98; BMI 26.6
--- NOTE | 2023-11-14 17:39 | XR_ITS ---
Patient: ROSALIO BABIN Facility:?[facility] Patient ID:?[id number] Site Patient ID:?[id number]. Site :?[id number] Study:?XRay-Hip Left 2V-11/14/2023 6:22:10 PM Ordering Physician:YON Final Report: Indication: Fall, pain. Technique: Left hip 3 views. Comparison: None. Findings: Bones: Subtle cortical irregularity of the superior cortex of the left superior pubic ramus labrum suspicious for a fracture. There is may also be a nondisplaced fracture of the left inferior pubic ramus. The left proximal femur appears intact. Alignment is normal. No aggressive osseous lesion. Joint spaces: Mild degenerative changes of the bilateral hips, pubic symphysis, and sacroiliac joints. Lower lumbar spondylosis. Soft tissues: Diffuse vascular calcifications. Impression: Findings suspicious for an nondisplaced left superior and inferior pubic rami fractures. Recommend pelvic or left hip CT for further evaluation. Dictated by Thor Ross MD @ 11/14/2023 7:05:22 PM Signed by:?Thor Ross MD @11/14/2023 7:05:22 PM (Electronic Signature)
--- NOTE | 2023-11-14 17:40 | ED_ITS ---
HPI - Fall General Chief Complaint: Fall/Minor Trauma Stated Complaint: Fall Time Seen by Provider: 11/14/23 17:27 History of Present Illness HPI Narrative: This 88-year-old male comes in with injury to his left hip that occurred at about noon today, about 5 hours prior to arrival. He was getting up from a chair and fell onto his left side. He states he does not have much pain at rest but with any kind of movement or weight-bearing he has significant pain. He does not report any other injury. He did not have loss of consciousness. Related Data Home Medications Medication Instructions Recorded Confirmed amlodipine 10 mg tablet 10 mg PO DAILY 02/14/22 02/14/22 aspirin 81 mg tablet,delayed 81 mg PO DAILY 02/14/22 02/14/22 release (Adult Aspirin Regimen) atorvastatin 40 mg tablet 40 mg PO HS 02/14/22 02/14/22 fosinopril 40 mg tablet 40 mg PO DAILY 02/14/22 02/14/22 furosemide 20 mg tablet 20 mg PO 3XW PRN edema 02/14/22 02/14/22 gemfibrozil 600 mg tablet 600 mg PO BIDWM 02/14/22 02/14/22 glipizide 10 mg tablet 10 mg PO DAILY 02/14/22 02/14/22 hydrochlorothiazide 50 mg tablet 50 mg PO DAILY 02/14/22 02/14/22 metformin 500 mg tablet 500 mg PO DAILY 02/14/22 02/14/22 metoprolol tartrate 25 mg tablet 25 mg PO BID 02/14/22 02/14/22 omeprazole 20 mg capsule,delayed 20 mg PO DAILY 02/14/22 02/14/22 release pioglitazone 30 mg tablet 30 mg PO DAILY 02/14/22 02/14/22 timolol maleate 0.5 % eye drops 1 drp ophthalmic (eye) BID 02/14/22 02/14/22 venlafaxine 37.5 mg tablet 37.5 mg PO DAILY 02/14/22 02/14/22 vibegron 75 mg tablet (Gemtesa) 75 mg PO DAILY 02/14/22 02/14/22 Allergies Allergy/AdvReac Type Severity Reaction Status Date / Time No Known Drug Allergies Allergy Verified 02/13/22 19:33 Review of Systems Status of ROS: Reports: 10 or more systems reviewed and unremarkable except as noted in History and below Narrative: Constitutional: No fevers, no weight gain or loss. Eyes: No discharge. No vision changes. HENT: No congestion, no sore throat, no ear pain. Cardiovascular: No chest pain, no palpitations. Respiratory: No shortness of breath, no wheezes, no cough. Gastrointestinal: No abdominal pain, no vomiting, no diarrhea. Genitourinary: No dysuria, no hematuria. Musculoskeletal: Left hip injury as described above. Skin: No rashes, no pruritis. Neurological: No dizziness, weakness, sensory change, speech change. Endo/Heme/Allergies: No bruising or bleeding. No polydipsia. Pysch: no suicidality, no anxiety, no insomnia. All other systems reviewed and are negative. [facility] Medical History (Updated 11/14/23 @ 19:35 by Manjit Momin MD) Anemia ?D64.9 - Anemia, unspecified (ICD-10) COVID-19 virus infection ?U07.1 - COVID-19 (ICD-10) BPH (benign prostatic hyperplasia) ?N40.0 - Benign prostatic hyperplasia without lower urinary tract symptoms (ICD-10) Generalized anxiety disorder ?F41.1 - Generalized anxiety disorder (ICD-10) Major depression ?F32.9 - Major depressive disorder, single episode, unspecified (ICD-10) GERD (gastroesophageal reflux disease) ?K21.9 - Gastro-esophageal reflux disease without esophagitis (ICD-10) CLL (chronic lymphocytic leukemia) ?C91.10 - Chronic lymphocytic leukemia of B-cell type not having achieved remission (ICD-10) Chronic kidney disease (CKD) stage G3a/A2, moderately decreased glomerular filtration rate (GFR) between 45-59 mL/min/1.73 square meter and albuminuria creatinine ratio between 30-299 mg/g ?N18.31 - Chronic kidney disease, stage 3a (ICD-10) Type 2 diabetes mellitus ?E11.9 - Type 2 diabetes mellitus without complications (ICD-10) PSVT (paroxysmal supraventricular tachycardia) ?I47.1 - Supraventricular tachycardia (ICD-10) Presbyacusis ?H91.10 - Presbycusis, unspecified ear (ICD-10) Hypertension ?I10 - Essential (primary) hypertension (ICD-10) Surgical History History of tonsillectomy ?Z90.89 - Acquired absence of other organs (ICD-10) History of total knee arthroplasty ?Z96.659 - Presence of unspecified artificial knee joint (ICD-10) Social History Narrative: , retired, nonsmoker, Highest level of school completed/degree received: Master's degree Smoking Status: Never smoker Do you use any of these nicotine containing products: None Second hand tobacco smoke exposure: No How often do you have a drink containing alcohol: never How often do you have six or more drinks on one occasion: Never AUDIT-C Alcohol total score: 0 Non-prescribed substance use: denies use Caffeine: Yes (POP 1-2 DAILY) service: Yes Exam Narrative: Exam Narrative: Constitutional: Well-developed, well-nourished, no acute distress. HEENT: Normocephalic, atraumatic. Neck: Normal range of motion. Nontender. Supple. Heart: Regular. No murmurs. Normal rate. Intact distal pulses. Lungs: Clear to auscultation. No chest discomfort. No wheezes, rhonchi, or rales. Abdomen: Normal bowel sounds. Nontender. No rebound tenderness. Genitalia: Deferred. Back: No midline tenderness. Normal range of motion. Extremities: Mild to moderate discomfort when log-rolling his left leg. He has distinct pain when attempting to lift his Left leg from the bed. Skin: Intact. No rash. Warm. No erythema or pallor. Neurologic: No altered sensation. No weakness. Alert and oriented. Psychiatric: No suicidality. No anxiety or depression. No insomnia. Nursing notes and vitals signs are reviewed. Const: Vital Signs, click to edit/add: Vital Signs - 24 hr 11/14/23 17:28 Temperature 97.5 F L Pulse Rate [Pulse Oximeter] 60 Respiratory Rate 16 Blood Pressure [Ri ght Upper Arm] 155/78 H Pulse Oximetry 98 Oxygen Delivery Me thod Room Air Course Vital Signs Vital signs: Initial Vital Signs Temperature 97.5 F L 11/14/23 17:28 Temperature Source Temporal Artery Scan 11/14/23 17:28 Pulse Rate 60 11/14/23 17:28 Pulse Rhythm Regular 11/14/23 17:28 Respiratory Rate 16 11/14/23 17:28 Blood Pressure 155/78 H 11/14/23 17:28 Blood Pressure Mean 103 11/14/23 17:28 Blood Pressure Position Sitting 11/14/23 17:28 Pulse Oximetry 98 11/14/23 17:28 Oxygen Delivery Method Room Air 11/14/23 17:28 Vital Signs Temperature 97.5 F L 11/14/23 17:28 Pulse Rate 60 11/14/23 17:28 Respiratory Rate 16 11/14/23 17:28 Blood Pressure 155/78 H 11/14/23 17:28 Pulse Oximetry 98 11/14/23 17:28 Oxygen Delivery Method Room Air 11/14/23 17:28 Temperature 97.5 F L 11/14/23 17:28 Pulse Rate 60 11/14/23 17:28 Respiratory Rate 16 11/14/23 17:28 Blood Pressure 155/78 H 11/14/23 17:28 Pulse Oximetry 98 11/14/23 17:28 Oxygen Delivery Method Room Air 11/14/23 17:28 MDM - Fall MDM Narrative Medical decision making narrative: This patient comes in for evaluation of an injury due to a fall that occurred about fiber 6 hours prior to arrival. He was able to get up with great difficulty and ambulate at home with the assistance of a walker. On exam here he had mild discomfort initially when log-rolling his leg. He has lots of pain with any kind of weight-bearing. This seemed suspicious for a pelvis fracture. X-ray imaging does show evidence of fracture of the inferior and superior pubic rami on the left. A CT scan is ordered for more accurate assessment of this injury. The patient does not live alone at home but is not so able to have strength to ambulate safely enough even with the assistance of a walker. I did speak with Dr. Stone who agreed to his admission. Patient understands that he will likely be placed in some sort of rehab facility for ongoing management. Lab Data Labs: Lab Results 11/14/23 Range/Units 18:38 Urine Color Yellow (Yellow) Urine Appearance Clear (Clear) Urine pH 5.5 (5.0-8.5) Ur Specific [place] 1.015 (1.000-1.030) Urine Protein Trace A (Negative) Urine Glucose (UA) 2+ A (Negative) Urine Ketones Negative (Negative) Urine Blood Trace-lysed A (Negative) Urine Nitrite Negative (Negative) Urine Bilirubin Negative (Negative) Urine Urobilinogen 0.2 (0.2-1.0) Ur Leukocyte Esterase Negative (Negative) Imaging Data XR L Hip: Radiologist's impression: Findings suspicious for an nondisplaced left superior and inferior pubic rami fractures. Recommend pelvic or left hip CT for further evaluation. Discharge Plan Discharge Clinical Impression: Fractured pelvis Patient Disposition: Admitted As Observation Condition: Unchanged Prescriptions: No Action venlafaxine 37.5 mg tablet 37.5 mg PO DAILY amlodipine 10 mg tablet 10 mg PO DAILY atorvastatin 40 mg tablet 40 mg PO HS fosinopril 40 mg tablet 40 mg PO DAILY furosemide 20 mg tablet 20 mg PO 3XW PRN (Reason: edema) Patient Comments: TAKE 1 TABLET BY MOUTH 3 TIMES EVERY WEEK FOR SWELLING gemfibrozil 600 mg tablet 600 mg PO BIDWM glipizide 10 mg tablet 10 mg PO DAILY hydrochlorothiazide 50 mg tablet 50 mg PO DAILY metformin 500 mg tablet 500 mg PO DAILY Patient Comments: TAKE 1 TABLET BY MOUTH DAILY WITH THE EVENING MEAL metoprolol tartrate 25 mg tablet 25 mg PO BID omeprazole 20 mg capsule,delayed release(DR/EC) 20 mg PO DAILY pioglitazone 30 mg tablet 30 mg PO DAILY timolol maleate 0.5 % drops 1 drp OPHTHALMIC (EYE) BID Patient Comments: INSTILL 1 DROP IN LEFT EYE TWICE DAILY Gemtesa 75 mg tablet 75 mg PO DAILY Patient Comments: TAKE ONE TABLET BY MOUTH ONCE DAILY. aspirin [Adult Aspirin Regimen] 81 mg tablet,delayed release (DR/EC) 81 mg PO DAILY Follow Up/Referrals: Jesus Zapien MD [Referring] -
[2023-11-14 18:56] LABS: Appearance Urine Clear (Clear); Bilirubin Urine Negative (Negative); Blood Urine Trace-lysed (Negative); Color Urine Yellow (Yellow); Glucose Urine 2+ (Negative); Ketones Urine Negative (Negative); Leukocyte Esterase Urine Negative (Negative); Nitrite Urine Negative (Negative); Protein Urine Trace (Negative); Specific Gravity Urine 1.015 (1.000-1.030); Urobilinogen Urine 0.2 (0.2-1.0); pH Urine 5.5 (5.0-8.5)
--- NOTE | 2023-11-14 19:30 | CT_ITS ---
Patient: ROSALIO BABIN Facility:?[facility] Patient ID:?[id number] Site Patient ID:?[id number] Site :?[id number] Study:?CT-Pelvis ([place]) Left LEFT HIP-11/14/2023 8:18:42 PM Ordering Physician:?DR. HAN Final Report: Indication: Abnormal x-ray Technique: Noncontrast CT of the left hip. Please note that all CT scans at this facility use dose modulation, iterative reconstruction, and/or weight-based dosing when appropriate to reduce radiation dose to as low as reasonably achievable. Comparison: Left hip radiographs from the same day. Findings: There is an acute nondisplaced fracture of the left inferior pubic ramus as well as the left superior pubic ramus with extension into the anterior acetabulum. Subtle acute nondisplaced fracture of the inferior left sacroiliac joint (7/107 and 10/). Moderate atherosclerotic disease. Normal appendix. No free fluid in the pelvis. Large rectal stool burden. Diverticulosis. Impression: 1. Acute nondisplaced fractures of the left inferior and superior pubic rami with extension into the left anterior acetabulum. Intact left proximal femur. 2. Subtle acute nondisplaced fracture of the inferior left sacroiliac joint. Please note that all CT scans at this facility use dose modulation, iterative reconstruction, and/or weight-based dosing when appropriate to reduce radiation dose to as low as reasonably achievable. Dictated by Thor Ross MD @ 11/14/2023 8:56:04 PM Signed by:?Thor Ross MD @11/14/2023 8:56:04 PM (Electronic Signature)
[2023-11-14 19:49] LABS: RBC Urine 0-2 (0-2); Squamous Epithelial Cell Urine Few (None-Few); WBC Urine 0-2 (0-5)
[2023-11-14 20:15] VITALS: BP 171/75; PULSE 69; RESP 16; TEMP 36.4; O2SAT 97; BMI 28.6
--- NOTE | 2023-11-14 21:02 | P.IMHP_ITS ---
Hospitalist- H&P: HPI History of Present Illness Date Seen: 11/14/23 Chief complaint: Fall Narrative: Rosalio Babin is a 88 year old male with CLL, diabetes, hypertension who fell around noon today when he lost his balance injuring his left hip. He reports no loss of consciousness. When he fell he reports that his head slightly bumped against a cabinet but there was no pain or injury. He was feeling well before falling. He believes he just lost his balance. He normally walks with a 2 wheeled walker but does have some balance problems. Since he fell he has been able to bear weight but it is very painful in the left groin area. Review of Systems Narrative: He reports no recent illness or injury except as noted above. [facility] Medical History (Updated 11/14/23 @ 21:29 by Jericho Stone MD) Chronic constipation ?K59.09 - Other constipation (ICD-10) Fractured pelvis ?S32.9XXA - Fracture of unspecified parts of lumbosacral spine and pelvis, initial encounter for closed fracture (ICD-10) Anemia ?D64.9 - Anemia, unspecified (ICD-10) COVID-19 virus infection ?U07.1 - COVID-19 (ICD-10) BPH (benign prostatic hyperplasia) ?N40.0 - Benign prostatic hyperplasia without lower urinary tract symptoms (ICD-10) Generalized anxiety disorder ?F41.1 - Generalized anxiety disorder (ICD-10) Major depression ?F32.9 - Major depressive disorder, single episode, unspecified (ICD-10) GERD (gastroesophageal reflux disease) ?K21.9 - Gastro-esophageal reflux disease without esophagitis (ICD-10) CLL (chronic lymphocytic leukemia) ?C91.10 - Chronic lymphocytic leukemia of B-cell type not having achieved remission (ICD-10) Chronic kidney disease (CKD) stage G3a/A2, moderately decreased glomerular filtration rate (GFR) between 45-59 mL/min/1.73 square meter and albuminuria creatinine ratio between 30-299 mg/g ?N18.31 - Chronic kidney disease, stage 3a (ICD-10) Type 2 diabetes mellitus ?E11.9 - Type 2 diabetes mellitus without complications (ICD-10) PSVT (paroxysmal supraventricular tachycardia) ?I47.1 - Supraventricular tachycardia (ICD-10) Presbyacusis ?H91.10 - Presbycusis, unspecified ear (ICD-10) Hypertension ?I10 - Essential (primary) hypertension (ICD-10) Surgical History History of tonsillectomy ?Z90.89 - Acquired absence of other organs (ICD-10) History of total knee arthroplasty ?Z96.659 - Presence of unspecified artificial knee joint (ICD-10) Family History (Updated 11/14/23 @ 21:11 by Jericho Stone MD) Mother Pancreatic cancer Diabetes Sister Leukemia Father Stroke Social History (Updated 11/14/23 @ 21:12 by Jericho Stone MD) Narrative: He is and lives in a home with his . They have hired a caregiver to come in for 5 days a week for a half day. 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 Code status is DNR. He does not smoke. He does not drink alcohol. Highest level of school completed/degree received: Master's degree Smoking Status: Never smoker Do you use any of these nicotine containing products: None Second hand tobacco smoke exposure: No How often do you have a drink containing alcohol: never How often do you have six or more drinks on one occasion: Never AUDIT-C Alcohol total score: 0 Non-prescribed substance use: denies use Caffeine: Yes (POP 1-2 DAILY) service: Yes Meds Home Medications and Allergies Home Medications Medication Instructions Recorded Confirmed Type amlodipine 10 mg tablet 10 mg PO DAILY 02/14/22 11/14/23 History aspirin 81 mg tablet,delayed 81 mg PO DAILY 02/14/22 11/14/23 History release (Adult Aspirin Regimen) atorvastatin 40 mg tablet 40 mg PO HS 02/14/22 11/14/23 History metoprolol tartrate 25 mg tablet 25 mg PO BID 02/14/22 11/14/23 History pioglitazone 30 mg tablet 30 mg PO DAILY 02/14/22 11/14/23 History timolol maleate 0.5 % eye drops 1 drp ophthalmic (eye) BID 02/14/22 11/14/23 History venlafaxine 37.5 mg tablet 37.5 mg PO DAILY 02/14/22 11/14/23 History vibegron 75 mg tablet (Gemtesa) 75 mg PO DAILY 02/14/22 11/14/23 History empagliflozin 10 mg tablet 10 mg PO DAILY 11/14/23 11/14/23 History (Jardiance) ferrous sulfate 325 mg (65 mg 325 mg PO .Twice weekly 11/14/23 11/14/23 History iron) tablet glipizide 5 mg tablet, extended 5 mg PO DAILY 11/14/23 11/14/23 History release 24 hr hydrochlorothiazide 25 mg tablet 25 mg PO DAILY 11/14/23 11/14/23 History multivitamin (Daily Multi-Vitamin 1 tab PO DAILY 11/14/23 11/14/23 History tablet) sennosides 8.6 mg capsule (senna) 8.6 mg PO TIDWM 11/14/23 11/14/23 History Allergies Allergy/AdvReac Type Severity Reaction Status Date / Time No Known Drug Allergies Allergy Verified 02/13/22 19:33 Exam Narrative: Exam Narrative: Patient is alert and appears in no distress. He is quite hard of hearing. Head is without apparent trauma. No tenderness. Eyes normal. Pupils equal round reactive to light. Oropharynx is normal. Neck is supple without mass or tenderness. No adenopathy. Respirations are clear to auscultation. Breathing is unlabored. Cardiovascular: S1, S2, regular rate and rhythm. No murmur gallop or rub. Abdomen: Bowel sounds active. Abdomen is soft without tenderness or mass. He has tenderness in the left inguinal area consistent with the location of his pubic ramus fracture. No obvious bruising or deformity or swelling. He does not tolerate any active motion in his left hip. Right lower extremity moves well without any discomfort. He has old scar from previous knee replacement surgery on the left. No obvious trauma to his thigh, knee, leg or foot on the left. He has trace edema bilaterally. Diminished pedal pulses bilaterally. Const: Vital Signs, click to edit/add: Vital Signs - 24 hr 11/14/23 17:28 Temperature 97.5 F L Pulse Rate [Pulse Oximeter] 60 Respiratory Rate 16 Blood Pressure [Ri ght Upper Arm] 155/78 H Pulse Oximetry 98 Oxygen Delivery Me thod Room Air Documenting provider has reviewed patient's vital signs: yes Hospitalist - H&P: Result Labs Labs: Urine 11/14/23 Range/Units 18:38 Urine Color Yellow (Yellow) Urine Appearance Clear (Clear) Urine pH 5.5 (5.0-8.5) Ur Specific [place] 1.015 (1.000-1.030) Urine Protein Trace A (Negative) Urine Glucose (UA) 2+ A (Negative) Imaging CT scan - pelvis: Radiologist's impression: Patient: ROSALIO BABIN Facility:?[facility] Patient ID:?[id number] Site Patient ID:?[id number] Site :?[id number] Study:?CT-Pelvis ([place]) Left LEFT HIP-11/14/2023 8:18:42 PM Ordering Physician:?DR. HAN Final Report: Indication: Abnormal x-ray Technique: Noncontrast CT of the left hip. Please note that all CT scans at this facility use dose modulation, iterative reconstruction, and/or weight-based dosing when appropriate to reduce radiation dose to as low as reasonably achievable. Comparison: Left hip radiographs from the same day. Findings: There is an acute nondisplaced fracture of the left inferior pubic ramus as well as the left superior pubic ramus with extension into the anterior acetabulum. Subtle acute nondisplaced fracture of the inferior left sacroiliac joint ( and ). Moderate atherosclerotic disease. Normal appendix. No free fluid in the pelvis. Large rectal stool burden. Diverticulosis. Impression: 1. Acute nondisplaced fractures of the left inferior and superior pubic rami with extension into the left anterior acetabulum. Intact left proximal femur. 2. Subtle acute nondisplaced fracture of the inferior left sacroiliac joint. Assessment and Plan Assessment and plan (1) Fractured pelvis: Problem comment: 1. Acute nondisplaced fractures of the left inferior and superior pubic rami with extension into the left anterior acetabulum. Intact left proximal femur. 2. Subtle acute nondisplaced fracture of the inferior left sacroiliac joint. Status: Acute (2) Anemia: Problem comment: Chronic stable anemia likely related to combination of factors including iron deficiency, CLL, chronic kidney disease Status: Acute (3) BPH (benign prostatic hyperplasia): Problem comment: Urinary urgency. Postvoid residual on 11/14/2023 was 0. Status: Acute (4) CLL (chronic lymphocytic leukemia): Problem comment: Long-term stable. No active treatment. Status: Acute (5) Chronic kidney disease (CKD) stage G3a/A2, moderately decreased glomerular filtration rate (GFR) between 45-59 mL/min/1.73 square meter and albuminuria creatinine ratio between 30-299 mg/g: Status: Acute (6) Type 2 diabetes mellitus: Problem comment: Most recent hemoglobin A1c June 2023 was 5.9 Status: Acute (7) Presbyacusis: Problem comment: Moderately severe hearing loss Status: Acute (8) Chronic constipation: Problem comment: Aggressive use of laxatives while on opiates Status: Acute Plan Patient is admitted to the hospital for management of pain, assessment of mobility and complications related to his pelvic fractures. Will consult Orthopedics because of the acetabular extension of the fracture though this appears to be nondisplaced. Total Time Spent Total Time Spent: Total time spent is 75 minutes, 50 minutes in coordination of care and discussing with patient family and other providers ongoing management of pelvic fracture and disability and pain.
[2023-11-14 21:14] LABS: Basophils Absolute Auto 0.02 K/uL (0.00-0.30); Basophils Percent Auto 0.2 % (0.0-3.0); Eosinophils Absolute Auto 0.01 K/uL (0.00-0.50); Eosinophils Percent Auto 0.1 % (0.0-7.0); Hematocrit 37.9 % (37.0-53.0); Hemoglobin* 12.3 gm/dL (13.5-17.5); Immature Granulocytes Abs Auto 0.01 K/uL (0.00-0.30); Immature Granulocytes Pct Auto 0.1 %; Lymphocytes Percent Auto 10.3 % (20-44); Mean Corpuscular HGB Conc 33 gm/dL (32-36); Mean Corpuscular Hemoglobin 31 pg (26-34); Mean Corpuscular Volume 97 fL (80-100); Monocytes Percent Auto 8.6 % (0.0-11.0); Neutrophils Percent Auto 80.7 % (42.0-72.0); Platelet Count* 214 K/uL (140-440); RDW Coefficient of Variation % 12.2 % (11.5-15.5); Red Blood Count 3.92 m/uL (4.30-5.90); White Blood Count* 10.01 K/uL (4.50-11.00)
[2023-11-14 21:20] LABS: Chloride* 108 mmol/L (96-114); Potassium* 4.1 mmol/L (3.6-5.1); Sodium* 137 mmol/L (135-149)
[2023-11-14 21:23] LABS: Anion Gap 3 mEq/L (7-15); Blood Urea Nitrogen* 51 mg/dL (7-30); Carbon Dioxide* 26 mmol/L (20-32); Creatinine* 1.6 mg/dL (0.5-1.5); Est. Creatinine Clearance* 31.91; Estimated Glomerular Filt Rate 41 ml/min
[2023-11-14 21:24] LABS: Calcium* 9.1 mg/dL (8.4-10.6); Glucose* 155 mg/dL (60-115)
[2023-11-14 21:27] LABS: Slide Review Reflex No
[2023-11-14] MEDS: SODIUM CHLORIDE 0.9 % (FLUSH) 10 ML SYRINGE 5 ML IVF (21:39)
[2023-11-14] MEDS: ENOXAPARIN 30 MG/0.3ML INJ SUBCUT (21:39)
[2023-11-14] MEDS: OXYCODONE 5 MG TABLET PO (21:39)
[2023-11-14] MEDS: SENNOSIDES/DOCUSATE TABLET 2 TAB PO (21:39)
[2023-11-14 21:53] VITALS: RESP 16; O2SAT 98
[2023-11-14 23:00] VITALS: BP 153/93; PULSE 78; RESP 16; TEMP 36.4; O2SAT 94
[2023-11-15] MEDS: ACETAMINOPHEN 325 MG TABLET 650 MG PO ×4 (00:31→18:27)
[2023-11-15 03:00] VITALS: RESP 16
[2023-11-15] MEDS: OXYCODONE 5 MG TABLET PO ×3 (04:12→13:37)
--- NOTE | 2023-11-15 06:18 | PC.NURSE ---
pleasant and cooperative. Very [place], Bilat hearing aids. Rating pain in hip 3-5/10 at rest, 10/10 with movement, see eMAR. Uses urinal at bedside. VSS.
--- NOTE | 2023-11-15 07:13 | P.IMPN_ITS ---
Progress Note: A&P Assessment and plan (1) Fractured pelvis: Problem details: 1. Acute nondisplaced fractures of the left inferior and superior pubic rami with extension into the left anterior acetabulum. Intact left proximal femur. 2. Subtle acute nondisplaced fracture of the inferior left sacroiliac joint. Discussed with Orthopedic Surgery, recommending WBAT with wheeled walker. Wheelchair is needed. PT/OT consults family services assistant for discharge needs. Currently working with family for p otential placement at [facility], enhanced assisted living. Would be evaluated on Saturday. Status: Acute (2) Anemia: Problem details: Chronic stable anemia likely related to combination of factors including iron deficiency, CLL, chronic kidney disease. Monitor Status: Acute (3) BPH (benign prostatic hyperplasia): Problem details: Urinary urgency. Postvoid residual on 11/14/2023 was 0. Continue Gemtesa Status: Acute (4) CLL (chronic lymphocytic leukemia): Problem details: Long-term stable. No active treatment. Status: Acute (5) Chronic kidney disease (CKD) stage G3a/A2, moderately decreased glomerular filtration rate (GFR) between 45-59 mL/min/1.73 square meter and albuminuria creatinine ratio between 30-299 mg/g: Problem details: Creatinine 1.6, baseline 1.4-1.6 Avoid nephrotoxic medications, will hold HCTZ for now Continue to monitor Status: Acute (6) Type 2 diabetes mellitus: Problem details: Most recent hemoglobin A1c June 2023 was 5.9 Hold home Jardiance, continue glipizide, pioglitazone Diabetic diet, glucose checks ACHS, ISS, monitor Status: Acute (7) Presbyacusis: Problem details: Moderately severe hearing loss Status: Acute (8) Chronic constipation: Problem details: Aggressive use of laxatives while on opiates, continuing home bowel regimen Status: Acute (9) Hypertension: Problem details: Continue home medications Status: Chronic Plan Awaiting placement, licensed master social worker assisting. Possibly Saturday evaluation with [facility] Time Spent With Patient Total time spent: Total time spent caring for the patient today was 45 minutes. This includes time spent for the visit reviewing the chart, time spent during the visit, time spent after the visit and documentation and planning in coordination of care. Subjective Date Seen: 11/15/23 Interval history: Patient reports feeling well this morning. Pain is managed as long as he is still. Worsens with movement. Denies headache or dizziness. Denies chest pain or shortness of breath. Tolerating orals without nausea vomiting. Exam Narrative: Exam Narrative: PHYSICAL EXAM General: Pleasant, conversant, NAD HEENT: Normocephalic, atraumatic, sclera white, EOMI, oral mucosa moist Cardiovascular: RRR, S1S2. No pitting edema Pulmonary: CTA bilaterally without rhonchi, rales, expiratory wheezes. No dyspnea Abdominal: Soft, nondistended, NTTP Neurological: Alert, answering questions appropriately, cranial nerves intact, no focal findings Extremities: No gross joint deformity or swelling. AROMI. Neurovascularly intact Skin: Warm, dry. Const: Vital Signs, click to edit/add: Vital Signs - 24 hr 11/14/23 17:28 11/14/23 20:15 11/14/23 21:53 Temperature 97.5 F L 97.6 F Pulse Rate [Pulse Oximeter] 60 69 Respiratory Rate 16 16 16 Blood Pressure [Ri ght Arm] 171/75 H Blood Pressure [Ri ght Upper Arm] 155/78 H Pulse Oximetry 98 97 98 Oxygen Delivery Me thod Room Air Room Air Room Air 11/14/23 23:00 11/14/23 23:00 11/14/23 23:00 Temperature 97.6 F Pulse Rate [Pulse Oximeter] 78 78 Respiratory Rate 16 16 16 Blood Pressure [Ri ght Arm] 153/93 H Blood Pressure [Ri ght Upper Arm] Pulse Oximetry 94 94 Oxygen Delivery Me thod Room Air Room Air 11/15/23 03:00 Temperature Pulse Rate [Pulse Oximeter] Respiratory Rate 16 Blood Pressure [Ri ght Arm] Blood Pressure [Ri ght Upper Arm] Pulse Oximetry Oxygen Delivery Me thod Labs Labs: Laboratory Results - last 24 hr 11/14/23 11/14/23 18:38 19:45 WBC 10.01 RBC 3.92 L Hgb 12.3 L Hct 37.9 MCV 97 MCH 31 MCHC 33 RDW Coeff of Erna 12.2 Plt Count 214 Neut % (Auto) 80.7 H Lymph % (Auto) 10.3 L [place] % (Auto) 8.6 Eos % (Auto) 0.1 Baso % (Auto) 0.2 Neut # (Auto) 8.10 H Lymph # (Auto) 1.00 [place] # (Auto) 0.90 Eos # (Auto) 0.01 Baso # (Auto) 0.02 Abs Immat Gran (auto) 0.01 Imm/Tot Granulo (auto) 0.1 Sodium 137 Potassium 4.1 Chloride 108 Carbon Dioxide 26 Anion Gap 3 L BUN 51 H Creatinine 1.6 H Estimated Creat Clear 31.91 Estimated GFR 41 Glucose 155 H Calcium 9.1 Urine Color Yellow Urine Appearance Clear Urine pH 5.5 Ur Specific [place] 1.015 Urine Protein Trace A Urine Glucose (UA) 2+ A Urine Ketones Negative Urine Blood Trace-lysed A Urine Nitrite Negative Urine Bilirubin Negative Urine Urobilinogen 0.2 Ur Leukocyte Esterase Negative Urine RBC 0-2 Urine WBC 0-2 Ur Squamous Epith Cells Few Urine Bacteria None
[2023-11-15] MEDS: glipiZIDE XL 5 MG TAB PO (07:42)
[2023-11-15] MEDS: SENNOSIDES 1 TAB TABLET PO ×3 (07:42→17:52)
[2023-11-15 07:46] VITALS: BP 154/84; PULSE 108; RESP 20; TEMP 37.2; O2SAT 97
[2023-11-15] MEDS: VENLAFAXINE HCL 37.5 MG TABLET PO (08:54)
[2023-11-15] MEDS: AMLODIPINE 10 MG TABLET PO (09:00)
[2023-11-15] MEDS: PIOGLITAZONE HCL 15 MG TABLET 30 MG PO (09:00)
[2023-11-15] MEDS: METOPROLOL TARTRATE 25 MG TABLET PO ×2 (09:00→20:32)
[2023-11-15] MEDS: ASPIRIN 81 MG TABLET EC PO (09:00)
[2023-11-15] MEDS: MULTIVITAMIN/MINERALS 1 TABLET 1 TAB PO (09:02)
[2023-11-15] MEDS: SODIUM CHLORIDE 0.9 % (FLUSH) 10 ML SYRINGE 5 ML IVF ×2 (09:04→20:33)
[2023-11-15] MEDS: timoloL maleate 0.5 % 1 DROP EYE-LEFT ×2 (09:08→20:33)
--- NOTE | 2023-11-15 09:25 | P.ORCN_ITS ---
History of Present Illness HPI Time Seen by Provider: 09:10 Date Seen: 11/15/23 Consult date: 11/15/23 Requesting physician: Rose Renee Consult reason: fracture Chief complaint: Fall Narrative: Carlos is a pleasant 88 year old male that is resting comfortably in bed this morning. DOI: 11/14/23. Yesterday, while getting up from a chair, Carlos fell onto this left side. Patient sustained an acute nondisplaced fractures of the left inferior and superior pubic rami and a subtle acute nondisplaced fracture of the inferior left sacroiliac joint. Patient's daughter, Patricia, is present during this visit and provides most of the history. Carlos denies left hip/pelvic pain. Pain is well managed with oxycodone and Tylenol PRN. Carlos's baseline gait is unsteady. Prior to this injury, he uses a walker daily. Patricia reports he is unsteady with lack of strength. Patient has had numerous falls over the past few years. patient has not yet weightbeared since this injury yesterday. Denies numbness/tingling distally. [facility] Medical History Chronic constipation ?K59.09 - Other constipation (ICD-10) Fractured pelvis ?S32.9XXA - Fracture of unspecified parts of lumbosacral spine and pelvis, initial encounter for closed fracture (ICD-10) Anemia ?D64.9 - Anemia, unspecified (ICD-10) COVID-19 virus infection ?U07.1 - COVID-19 (ICD-10) BPH (benign prostatic hyperplasia) ?N40.0 - Benign prostatic hyperplasia without lower urinary tract symptoms (ICD-10) Generalized anxiety disorder ?F41.1 - Generalized anxiety disorder (ICD-10) Major depression ?F32.9 - Major depressive disorder, single episode, unspecified (ICD-10) GERD (gastroesophageal reflux disease) ?K21.9 - Gastro-esophageal reflux disease without esophagitis (ICD-10) CLL (chronic lymphocytic leukemia) ?C91.10 - Chronic lymphocytic leukemia of B-cell type not having achieved remission (ICD-10) Chronic kidney disease (CKD) stage G3a/A2, moderately decreased glomerular filtration rate (GFR) between 45-59 mL/min/1.73 square meter and albuminuria cr eatinine ratio between 30-299 mg/g ?N18.31 - Chronic kidney disease, stage 3a (ICD-10) Type 2 diabetes mellitus ?E11.9 - Type 2 diabetes mellitus without complications (ICD-10) PSVT (paroxysmal supraventricular tachycardia) ?I47.1 - Supraventricular tachycardia (ICD-10) Presbyacusis ?H91.10 - Presbycusis, unspecified ear (ICD-10) Hypertension ?I10 - Essential (primary) hypertension (ICD-10) Surgical History History of tonsillectomy ?Z90.89 - Acquired absence of other organs (ICD-10) History of total knee arthroplasty ?Z96.659 - Presence of unspecified artificial knee joint (ICD-10) Family History Mother Pancreatic cancer Diabetes Sister Leukemia Father Stroke Social History Narrative: He is and lives in a home with his . They have hired a caregiver to come in for 5 days a week for a half day. 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 Code status is DNR. He does not smoke. He does not drink alcohol. What is your current living situation?: I presently have a place to live Problems where you live: no known problems Problems where you live details: n/a In the past 12 months, utilities in danger of being shut off: no In past 12 months, lack of transportation kept you from medical appts, meetings, work, or getting things needed for daily living: no In the past 12 mos, have been you worried that your food would run out before you had money to buy more?: never true In the past 12 mos, the food you bought just didn't last and you didn't have money to buy more?: never true Highest level of school completed/degree received: Master's degree Smoking Status: Never smoker Do you use any of these nicotine containing products: None Second hand tobacco smoke exposure: No How often do you have a drink containing alcohol: never How often do you have six or more drinks on one occasion: Never AUDIT-C Alcohol total score: 0 Non-prescribed substance use: denies use Caffeine: No How often does anyone, including family, friends and others, physically hurt you : never How often does anyone, including family, friends and others, insult or talk down to you: never How often does anyone, including family, friends and others, threaten you with harm: never How often does anyone, including family, friends and others, scream or curse at you: never service: Yes Meds Home Medications and Allergies Home Medications Medication Instructions Recorded Confirmed Type amlodipine 10 mg tablet 10 mg PO DAILY 02/14/22 11/14/23 History aspirin 81 mg tablet,delayed 81 mg PO DAILY 02/14/22 11/14/23 History release (Adult Aspirin Regimen) atorvastatin 40 mg tablet 40 mg PO HS 02/14/22 11/14/23 History metoprolol tartrate 25 mg tablet 25 mg PO BID 02/14/22 11/14/23 History pioglitazone 30 mg tablet 30 mg PO DAILY 02/14/22 11/14/23 History timolol maleate 0.5 % eye drops 1 drp ophthalmic (eye) BID 02/14/22 11/14/23 History venlafaxine 37.5 mg tablet 37.5 mg PO DAILY 02/14/22 11/14/23 History vibegron 75 mg tablet (Gemtesa) 75 mg PO DAILY 02/14/22 11/14/23 History empagliflozin 10 mg tablet 10 mg PO DAILY 11/14/23 11/14/23 History (Jardiance) ferrous sulfate 325 mg (65 mg 325 mg PO .Twice weekly 11/14/23 11/14/23 History iron) tablet glipizide 5 mg tablet, extended 5 mg PO DAILY 11/14/23 11/14/23 History release 24 hr hydrochlorothiazide 25 mg tablet 25 mg PO DAILY 11/14/23 11/14/23 History multivitamin (Daily Multi-Vitamin 1 tab PO DAILY 11/14/23 11/14/23 History tablet) sennosides 8.6 mg capsule (senna) 8.6 mg PO TIDWM 11/14/23 11/14/23 History Allergies Allergy/AdvReac Type Severity Reaction Status Date / Time No Known Drug Allergies Allergy Verified 02/13/22 19:33 Ortho Exam Const Vital Signs, click to edit/add: Vital Signs - 24 hr 11/14/23 17:28 11/14/23 20:15 11/14/23 21:53 Temperature 97.5 F L 97.6 F Pulse Rate [Pulse Oximeter] 60 69 Respiratory Rate 16 16 16 Blood Pressure [Right Arm] 171/75 H Blood Pressure [Right Upper Arm] 155/78 H Pulse Oximetry 98 97 98 Oxygen Delivery Method Room Air Room Air Room Air 11/14/23 23:00 11/14/23 23:00 11/14/23 23:00 Temperature 97.6 F Pulse Rate [Pulse Oximeter] 78 78 Respiratory Rate 16 16 16 Blood Pressure [Right Arm] 153/93 H Blood Pressure [Right Upper Arm] Pulse Oximetry 94 94 Oxygen Delivery Method Room Air Room Air 11/15/23 03:00 11/15/23 07:46 11/15/23 07:46 Temperature 99 F Pulse Rate [Pulse Oximeter] 108 H 108 H Respiratory Rate 16 20 20 Blood Pressure [Right Arm] 154/84 H Blood Pressure [Right Upper Arm] Pulse Oximetry 97 Oxygen Delivery Method Room Air 11/15/23 07:46 Temperature Pulse Rate [Pulse Oximeter] Respiratory Rate 20 Blood Pressure [Right Arm] Blood Pressure [Right Upper Arm] Pulse Oximetry 97 Oxygen Delivery Method Room Air Documenting provider has reviewed patient's vital signs: yes Common normals: no apparent distress, oriented x3, healthy appearing, alert and well nourished General appearance: cooperative, comfortable and well kempt Orientation/consciousness: Yes awake, Yes oriented to person, Yes oriented to place and Yes oriented to time HENKS Common normals: Yes hearing grossly normal bilaterally Resp Common normals: Yes normal respiratory effort Effort & inspection: able to speak in complete sentences and symmetric chest movement Cardio Peripheral pulses: posterior tibial pulses present and dorsalis pedis pulses present Extremity Other: Left hip ROM and strength testing deferred. Neuro Common normals: oriented x3 Sensorium/orientation: awake, alert, oriented to person, oriented to place and oriented to time Gait (neuro): unable to assess gait Psych Common normals: mental status grossly normal, thought process normal, cooperative, affect normal and speech normal Appearance: well kempt Speech: normal speech Thought process: normal thought process Insight: questionable Results Labs Labs: Laboratory Results - last 48 hr 11/14/23 11/14/23 18:38 19:45 WBC 10.01 RBC 3.92 L Hgb 12.3 L Hct 37.9 MCV 97 MCH 31 MCHC 33 RDW Coeff of Erna 12.2 Plt Count 214 Neut % (Auto) 80.7 H Lymph % (Auto) 10.3 L [place] % (Auto) 8.6 Eos % (Auto) 0.1 Baso % (Auto) 0.2 Neut # (Auto) 8.10 H Lymph # (Auto) 1.00 [place] # (Auto) 0.90 Eos # (Auto) 0.01 Baso # (Auto) 0.02 Abs Immat Gran (auto) 0.01 Imm/Tot Granulo (auto) 0.1 Sodium 137 Potassium 4.1 Chloride 108 Carbon Dioxide 26 Anion Gap 3 L BUN 51 H Creatinine 1.6 H Estimated Creat Clear 31.91 Estimated GFR 41 Glucose 155 H Calcium 9.1 Urine Color Yellow Urine Appearance Clear Urine pH 5.5 Ur Specific [place] 1.015 Urine Protein Trace A Urine Glucose (UA) 2+ A Urine Ketones Negative Urine Blood Trace-lysed A Urine Nitrite Negative Urine Bilirubin Negative Urine Urobilinogen 0.2 Ur Leukocyte Esterase Negative Urine RBC 0-2 Urine WBC 0-2 Ur Squamous Epith Cells Few Urine Bacteria None Diagnostic results Additional Comments: CT pelvis dated 11/14/23 was reviewed with Carlos and Patricia. This shows: an acute nondisplaced fractures of the left inferior and superior pubic rami and a subtle acute nondisplaced fracture of the inferior left sacroiliac joint. Assessment and Plan Assessment and plan (1) Fractured pelvis: Problem comment: 1. Acute nondisplaced fractures of the left inferior and superior pubic rami with extension into the left anterior acetabulum. Intact left proximal femur. 2. Subtle acute nondisplaced fracture of the inferior left sacroiliac joint. Status: Acute Assessment and Plan: Pelvic CT was reviewed with Carlos and his daughter Patricia. Non-operative treatment is recommended. PT/OT consults. May WBAT with walker and 1 person assist with gait belt. For pain management, ice, Oxycodone and Tylenol PRN. Carlos's pain is likely to be lessened with ambulation as opposed to being seated on his pelvis. Social consult for discharge planning. Patient will likely require TCU or Rehab placement upon discharge. Follow-up with myself or Dr. Renee in 2 weeks for clinical re-evaluation. (2) Anemia: Problem comment: Chronic stable anemia likely related to combination of factors including iron deficiency, CLL, chronic kidney disease Status: Acute Total time spent: Total time spent is greater than 50% in coordination of care (as documented) at patient's floor/unit and/or counseling patient: (3) BPH (benign prostatic hyperplasia): Problem comment: Urinary urgency. Postvoid residual on 11/14/2023 was 0. Status: Acute Total time spent: Total time spent is greater than 50% in coordination of care (as documented) at patient's floor/unit and/or counseling patient: (4) CLL (chronic lymphocytic leukemia): Problem comment: Long-term stable. No active treatment. Status: Acute Total time spent: Total time spent is greater than 50% in coordination of care (as documented) at patient's floor/unit and/or counseling patient: (5) Chronic kidney disease (CKD) stage G3a/A2, moderately decreased glomerular filtration rate (GFR) between 45-59 mL/min/1.73 square meter and albuminuria creatinine ratio between 30-299 mg/g: Problem comment: Creatinine 1.6, on 1.4-1.6 Avoid nephrotoxic medications, will hold HCTZ for now Continue to monitor Status: Acute Total time spent: Total time spent is greater than 50% in coordination of care (as documented) at patient's floor/unit and/or counseling patient: (6) Type 2 diabetes mellitus: Problem comment: Most recent hemoglobin A1c June 2023 was 5.9 Diabetic diet, glucose checks ACHS, will defer insulin sliding scale for now, monitoring Hold home Jardiance, continue glipizide, pioglitazone Status: Acute Total time spent: Total time spent is greater than 50% in coordination of care (as documented) at patient's floor/unit and/or counseling patient: (7) Presbyacusis: Problem comment: Moderately severe hearing loss Status: Acute Total time spent: Total time spent is greater than 50% in coordination of care (as documented) at patient's floor/unit and/or counseling patient: (8) Chronic constipation: Problem comment: Aggressive use of laxatives while on opiates, continuing home bowel regimen Status: Acute Total time spent: Total time spent is greater than 50% in coordination of care (as documented) at patient's floor/unit and/or counseling patient:
[2023-11-15 11:36] VITALS: BP 136/71; PULSE 67; RESP 18; TEMP 36.6; O2SAT 95
[2023-11-15] MEDS: Vibegron [Gemtesa] 75 mg tablet 75 EACH PO (11:57)
[2023-11-15 15:15] VITALS: BP 135/67; PULSE 67; RESP 18; TEMP 36.9; O2SAT 92
--- NOTE | 2023-11-15 15:54 | PC.SOCIAL ---
Discharge planning: ecclesiastical worker met with pt and his daughter, Chantell, today. ecclesiastical worker explained recommendations that were made by PT/OT and the doctor for continued skilled therapies. ecclesiastical worker also explained Observation vs. Inpatient status in the hospital. ecclesiastical worker explained that with pt's insurance he would need a three night inpatient hospital stay in order for insurance to pay for a SNF and the pt is in observation status right now. Pt is ready for discharge today. Pt and daughter did share that they do have the option of private paying for a facility. ecclesiastical worker explained services at [facility] in [place] at the [facility], as pt and daughter shared that the pt previously had a very bad experience at [facility] and they would prefer to not have him go there again. Pt and daughter are interested in [facility] and this worker reached out to Nichole Hoskins at [facility] to see if she could come to the hospital today to meet with the pt and assess him today to possibly place him this afternoon or weekend; however, Nichole was out of the office today and there was not another staff member on duty that could complete the assessment. Pt will remain in the hospital over the weekend with a plan of Nichole from [facility] coming to assess him on Saturday, as her schedule allows. ecclesiastical worker did provide pt and his daughter with a list of [facility] for their reference if they should need to start looking at SNF options in the event that [facility] does not work in the pt's favor. Pt's daughter, Chantell, stated that she would like to be present for the assessment with Nichole from [facility] on Saturday, if Nichole is able to come on Saturday. Social work to follow-up as needed.
[2023-11-15] MEDS: INSULIN ASPART 100 UNIT/ML SUBCUT ×2 (17:18→20:34)
--- NOTE | 2023-11-15 18:23 | PC.NURSE ---
End of Shift: Patient pleasant and cooperative, alert and oriented. Patient vitally stable, lungs course, BS WNL, IV intact and SL. Patient tolerating regular diet and urinating using urinal. Tylenol and 5 mg of oxy given multiple times see SEP. Sue vaughn used with 2 assist to chair and toilet. Patient was up to the chair today but now it bed. Patient rates pain at rest 2-3/10, pain increases with movement and patient winces and makes facial grimaces.
[2023-11-15] MEDS: ATORVASTATIN CALCIUM 40 MG TABLET PO (20:32)
[2023-11-15] MEDS: ENOXAPARIN 30 MG/0.3ML INJ SUBCUT (20:32)
[2023-11-15] MEDS: SENNOSIDES/DOCUSATE TABLET 2 TAB PO (20:32)
[2023-11-15 21:41] VITALS: BP 149/81; PULSE 88; RESP 20; TEMP 37.2; O2SAT 96
[2023-11-15 23:16] VITALS: RESP 20; O2SAT 96
[2023-11-16] VITALS (8 sets, daily range): BP systolic 122–165; BP diastolic 59–86; PULSE 50–73; RESP 16–20; TEMP 36.4–37.1; O2SAT 94–98
[2023-11-16 06:19] LABS: Hematocrit 36.1 % (37.0-53.0); Hemoglobin* 11.5 gm/dL (13.5-17.5); Mean Corpuscular HGB Conc 32 gm/dL (32-36); Mean Corpuscular Hemoglobin 31 pg (26-34); Mean Corpuscular Volume 98 fL (80-100); Platelet Count* 171 K/uL (140-440); Red Blood Count 3.67 m/uL (4.30-5.90); White Blood Count* 8.49 K/uL (4.50-11.00)
[2023-11-16 06:28] LABS: Slide Review Reflex No
--- NOTE | 2023-11-16 06:36 | PC.NURSE ---
End of shift [id number] - Pt alert, oriented to self, disoriented to time. Pt appeared to struggle to find his words when asked questions by RN regarding the situation and reason for his hospital stay. Overall, cooperative and pleasant. Pt not up during shift, reports no pain. Pt behavior indicated pain with reposition, but behavior returned to baseline when reposition was complete. Ice pack to L hip. Continent of bladder and uses urinal appropriately. Tolerating RA, regular diet, fluids. RN spoke to daughter via phone during shift per daughter request. VSS, afebrile. Pt appears to be resting comfortably at the end of shift. ?
[2023-11-16 06:40] LABS: Chloride* 107 mmol/L (96-114); Potassium* 3.7 mmol/L (3.6-5.1); Sodium* 137 mmol/L (135-149)
[2023-11-16 06:43] LABS: Anion Gap 5 mEq/L (7-15); Blood Urea Nitrogen* 52 mg/dL (7-30); Calcium* 8.7 mg/dL (8.4-10.6); Carbon Dioxide* 25 mmol/L (20-32); Creatinine* 1.8 mg/dL (0.5-1.5); Est. Creatinine Clearance* 28.37; Estimated Glomerular Filt Rate 36 ml/min; Glucose* 218 mg/dL (60-115)
--- NOTE | 2023-11-16 07:14 | PM.IMPN1 ---
Progress Note: A&P Assessment and plan (1) Fractured pelvis: Problem details: 1. Acute nondisplaced fractures of the left inferior and superior pubic rami with extension into the left anterior acetabulum. Intact left proximal femur. 2. Subtle acute nondisplaced fracture of the inferior left sacroiliac joint. Discussed with Orthopedic Surgery, recommending WBAT with wheeled walker. Wheelchair if needed. PT/OT consults fiscal services manager for discharge needs. Currently working with family for potential placement at [facility], enhanced assisted living. Would be evaluated on Friday 11/17 Status: Acute (2) Left leg pain: Problem details: 11/15 complaining of left mid thigh pain. Plain film, reviewed by me, shows no obvious fracture. Lidocaine patch, p.r.n. pain medications Continue PT/OT as tolerated Consider CT/MRI if new or worsening symptoms or no resolve Status: Acute (3) Anemia: Problem details: Chronic stable anemia likely related to combination of factors including iron deficiency, CLL, chronic kidney disease. Monitor Status: Acute (4) BPH (benign prostatic hyperplasia): Problem details: Urinary urgency. Postvoid residual on 11/14/2023 was 0. Continue Gemtesa Status: Acute (5) CLL (chronic lymphocytic leukemia): Problem details: Long-term stable. No active treatment. Status: Acute (6) Chronic kidney disease (CKD) stage G3a/A2, moderately decreased glomerular filtration rate (GFR) between 45-59 mL/min/1.73 square meter and albuminuria creatinine ratio between 30-299 mg/g: Problem details: Mild bump in creatinine, baseline 1.4-1.6 Avoid nephrotoxic medications, will hold HCTZ for now Continue to monitor Status: Acute (7) Type 2 diabetes mellitus: Problem details: Most recent hemoglobin A1c June 2023 was 5.9 Hold home Jardiance, continue glipizide, pioglitazone Diabetic diet, glucose checks ACHS, ISS, monitor - POC sugars coming down, continue to follow Status: Acute (8) Presbyacusis: Problem details: Moderately severe hearing loss Status: Acute (9) Chronic constipation: Problem details: Aggressive use of laxatives while on opiates, continuing home bowel regimen and p.r.n.s Status: Acute (10) Hypertension: Problem details: Continue home medications Status: Chronic Plan Awaiting placement, nursing home social worker assisting. Possibly Saturday evaluation with [facility] Time Spent With Patient Total time spent: Total time spent caring for the patient today was 45 minutes. This includes time spent for the visit reviewing the chart, time spent during the visit, time spent after the visit and documentation and planning in coordination of care. Subjective Date Seen: 11/16/23 Interval history: Patient is sitting up in a chair eating breakfast this morning. Reports pain is same as usual while at rest. Tolerating orals without nausea vomiting. Occupational therapy reports later in the morning patient is complaining of mid to distal femur pain with weight-bearing. Active range of motion is intact. Femur x-rays obtained, reviewed by me, without obvious acute fracture. Lidocaine patch applied, continue pain management as needed. Await PT assessment. Exam Narrative: Exam Narrative: PHYSICAL EXAM General: Pleasant, conversant, NAD HEENT: Normocephalic, atraumatic, sclera white, EOMI, oral mucosa moist Cardiovascular: RRR, S1S2. No pitting edema Pulmonary: CTA bilaterally without rhonchi, rales, expiratory wheezes. No dyspnea Abdominal: Soft, nondistended, NTTP Neurological: Alert, answering questions appropriately, cranial nerves intact, no focal findings Extremities: No gross joint deformity or swelling. AROMI. Neurovascularly intact. No acute findings today. Skin: Warm, dry. Const: Vital Signs, click to edit/add: Vital Signs - 24 hr 11/15/23 07:46 11/15/23 07:46 11/15/23 07:46 Temperature 99 F Pulse Rate [Pulse Oximeter] 108 H 108 H Respiratory Rate 20 20 20 Blood Pressure [Le ft Arm] Blood Pressure [Ri ght Arm] 154/84 H Pulse Oximetry 97 97 Oxygen Delivery De thod Room Air Room Air 11/15/23 11:36 11/15/23 15:15 11/15/23 15:15 Temperature 98 F 98.4 F Pulse Rate [Pulse Oximeter] 67 67 67 Respiratory Rate 18 18 18 Blood Pressure [Le ft Arm] 136/71 Blood Pressure [Ri ght Arm] 135/67 Pulse Oximetry 95 92 Oxygen Delivery De thod Room Air Room Air 11/15/23 15:15 11/15/23 21:41 11/15/23 23:16 Temperature 98.9 F Pulse Rate [Pulse Oximeter] 88 Respiratory Rate 18 20 20 Blood Pressure [Le ft Arm] 149/81 H Blood Pressure [Ri ght Arm] Pulse Oximetry 92 96 96 Oxygen Delivery Me thod Room Air Room Air Room Air 11/16/23 00:46 11/16/23 04:28 Temperature 98.5 F 98.0 F Pulse Rate [Pulse Oximeter] 73 65 Respiratory Rate 20 16 Blood Pressure [Le ft Arm] 142/86 H 142/64 H [facility] Pulse Oximetry 94 94 Oxygen Delivery Me thod Room Air Room Air Labs Labs: Laboratory Results - last 24 hr 11/16/23 05:33 WBC 8.49 RBC 3.67 L Hgb 11.5 L Hct 36.1 L MCV 98 MCH 31 MCHC 32 Plt Count 171 Sodium 137 Potassium 3.7 Chloride 107 Carbon Dioxide 25 Anion Gap 5 L BUN 52 H Creatinine 1.8 H Estimated Creat Clear 28.37 Estimated GFR 36 Glucose 218 H Calcium 8.7
[2023-11-16] MEDS: glipiZIDE XL 5 MG TAB PO (07:40)
[2023-11-16] MEDS: ACETAMINOPHEN 325 MG TABLET 650 MG PO ×4 (07:40→21:16)
[2023-11-16] MEDS: SENNOSIDES 1 TAB TABLET PO ×3 (07:40→17:45)
[2023-11-16] MEDS: INSULIN ASPART 100 UNIT/ML SUBCUT ×4 (07:42→21:16)
--- NOTE | 2023-11-16 09:04 | XR_ITS ---
Patient: ROSALIO BABIN Facility:?[facility] Patient ID:?[id number] Site Patient ID:?[id number]. Site :?[id number] Study:?XRay-Extremity Left FEMUR 2 VIEW-11/16/2023 9:44:15 AM Ordering Physician:GWEN Final Report: INDICATION: Femur pain rule out femur fracture TECHNIQUE: Three views of the right femur FINDINGS/IMPRESSION: Normal alignment. The bones are demineralized. Long-stem left knee arthroplasty in appropriate position inferior component is not completely imaged vascular calcifications. Mild soft tissue swelling no effusion. Dictated by Nneka Stuart MD @ 11/16/2023 10:30:48 AM Signed by:?Nneka Stuart MD @11/16/2023 10:30:48 AM (Electronic Signature)
[2023-11-16] MEDS: SENNOSIDES/DOCUSATE TABLET 2 TAB PO (09:25)
[2023-11-16] MEDS: PIOGLITAZONE HCL 15 MG TABLET 30 MG PO (09:25)
[2023-11-16] MEDS: MULTIVITAMIN/MINERALS 1 TABLET 1 TAB PO (09:25)
[2023-11-16] MEDS: AMLODIPINE 10 MG TABLET PO (09:25)
[2023-11-16] MEDS: ASPIRIN 81 MG TABLET EC PO (09:25)
[2023-11-16] MEDS: Vibegron [Gemtesa] 75 mg tablet 75 EACH PO (09:26)
[2023-11-16] MEDS: VENLAFAXINE HCL 37.5 MG TABLET PO (09:26)
[2023-11-16] MEDS: METOPROLOL TARTRATE 25 MG TABLET PO ×2 (09:26→21:16)
[2023-11-16] MEDS: timoloL maleate 0.5 % 1 DROP EYE-LEFT ×2 (09:27→21:16)
[2023-11-16] MEDS: SODIUM CHLORIDE 0.9 % (FLUSH) 10 ML SYRINGE 5 ML IVF ×2 (09:28→21:17)
[2023-11-16] MEDS: LIDOCAINE 5% PATCH 1 PATCH TRANSDERMA (10:43)
--- NOTE | 2023-11-16 18:14 | PC.NURSE ---
End of Shift: Pt is calm, cooperative and pleasant.Pt oriented x3 but forgetful at times with delayed responses. Pt vital signs WDL, lungs sounds fluctuate between clear and coarse. IV saline locked and intact. Pt rates pain 2 out of 10 with activity, only scheduled Tylenol given. Pt tolerating regular diet, and urinating well using urinal, no BM during shift. Blood sugars: 208, 216, 220, insulin given. Pt has spent more time up in chair today compared to yesterday. Pt is 2 assist with andra vaughn. Lidocaine patch applied to left upper leg.
[2023-11-16] MEDS: ATORVASTATIN CALCIUM 40 MG TABLET PO (21:16)
[2023-11-16] MEDS: ENOXAPARIN 30 MG/0.3ML INJ SUBCUT (21:17)
--- NOTE | 2023-11-16 23:02 | PC.NURSE ---
Shift note: Pt is transfer with EZ stand. Pain level has been rated at 2. Pt has been in recliner most of the shift. Takes pills whole, cooperate with treatment and care. Alert and oriented.
[2023-11-17 03:00] VITALS: BP 164/96; PULSE 63; RESP 16; TEMP 36.7; O2SAT 93
[2023-11-17] MEDS: OXYCODONE 5 MG TABLET 2.5 MG PO (04:09)
--- NOTE | 2023-11-17 06:28 | PC.NURSE ---
Pt alert and oriented x3. Afebrile. On room air.?Pt continues to have intermittent cough. Pt denies pain, chest pain, and N/V. Pt on tele, showing a-fib with normal ventricular rate with inverted t waves, MD Bermudez aware, orders given to monitor pt for chest pain.?Pt is up ad noemi in room. Pt slept intermittently throughout night, PRN melatonin 3 mg given at HS by previous RN, with little relief. updated, orders given 6 mg of melatonin with little relief.
--- NOTE | 2023-11-17 06:33 | PC.NURSE ---
Pt alert and oriented to self and place, has some difficulties with orientation to time a night.?Afebrile. Pt reports 7/10 in left knee/hip, pain managed with PRN medication. Pt is up A2 with easy stand, voiding, and tolerating a regular diet. Pt slept throughout most of night. ?
[2023-11-17 07:38] VITALS: BP 154/74; PULSE 64; RESP 16; TEMP 36.8; O2SAT 96
[2023-11-17] MEDS: INSULIN ASPART 100 UNIT/ML SUBCUT ×4 (07:49→20:18)
[2023-11-17] MEDS: SENNOSIDES 1 TAB TABLET PO ×3 (07:49→17:46)
[2023-11-17] MEDS: glipiZIDE XL 5 MG TAB PO (07:49)
[2023-11-17] MEDS: METOPROLOL TARTRATE 25 MG TABLET PO ×2 (09:09→20:09)
[2023-11-17] MEDS: AMLODIPINE 10 MG TABLET PO (09:09)
[2023-11-17] MEDS: PIOGLITAZONE HCL 15 MG TABLET 30 MG PO (09:09)
[2023-11-17] MEDS: MULTIVITAMIN/MINERALS 1 TABLET 1 TAB PO (09:10)
[2023-11-17] MEDS: ACETAMINOPHEN 325 MG TABLET 650 MG PO ×4 (09:10→20:09)
[2023-11-17] MEDS: SODIUM CHLORIDE 0.9 % (FLUSH) 10 ML SYRINGE 5 ML IVF ×2 (09:10→20:10)
[2023-11-17] MEDS: ASPIRIN 81 MG TABLET EC PO (09:10)
[2023-11-17] MEDS: Vibegron [Gemtesa] 75 mg tablet 75 EACH PO (09:11)
[2023-11-17] MEDS: timoloL maleate 0.5 % 1 DROP EYE-LEFT ×2 (09:12→20:09)
[2023-11-17] MEDS: VENLAFAXINE HCL 37.5 MG TABLET PO (09:12)
--- NOTE | 2023-11-17 09:27 | P.IMPN_ITS ---
Progress Note: A&P Assessment and plan (1) Fractured pelvis: Problem details: 1. Acute nondisplaced fractures of the left inferior and superior pubic rami with extension into the left anterior acetabulum. Intact left proximal femur. 2. Subtle acute nondisplaced fracture of the inferior left sacroiliac joint. Discussed with Orthopedic Surgery, recommending WBAT with wheeled walker. Wheelchair if needed. PT/OT following ancillary services manager therapy for discharge needs. Currently working with family for potential placement at [facility], enhanced assisted living. Would be evaluated on Friday 11/17 Status: Acute (2) Left leg pain: Problem details: 11/15 complaining of left mid thigh pain. Plain film, reviewed by me, shows no obvious fracture, confirmed by Radiology Discussed with Orthopedic surgery, no palpable bony pain of left femur on exam. Flexion of hip/knee recreate pain. Consistent with referred pain of pelvic fracture. No new recommendations Lidocaine patch, p.r.n. pain medications (low doses narcotics to decrease fall risk, weakness, confusion - as discussed with family) Continue PT/OT as tolerated Status: Acute (3) Anemia: Problem details: Chronic stable anemia likely related to combination of factors including iron deficiency, CLL, chronic kidney disease. Monitor Status: Acute (4) BPH (benign prostatic hyperplasia): Problem details: Urinary urgency. Postvoid residual on 11/14/2023 was 0. Continue Gemtesa Status: Acute (5) CLL (chronic lymphocytic leukemia): Problem details: Long-term stable. No active treatment. Status: Acute (6) Chronic kidney disease (CKD) stage G3a/A2, moderately decreased glomerular filtration rate (GFR) between 45-59 mL/min/1.73 square meter and albuminuria creatinine ratio between 30-299 mg/g: Problem details: Mild bump in creatinine, baseline 1.4-1.6 Avoid nephrotoxic medications, will hold HCTZ for now Continue to monitor Status: Acute (7) Type 2 diabetes mellitus: Problem details: Most recent hemoglobin A1c June 2023 was 5.9 Hold home Jardiance, continue glipizide, pioglitazone Diabetic diet, glucose checks ACHS, ISS, monitor and adjust insulin as necessary Status: Acute (8) Presbyacusis: Problem details: Moderately severe hearing loss Status: Acute (9) Chronic constipation: Problem details: Aggressive use of laxatives while on opiates, continuing home bowel regimen and p.r.n.s Status: Acute (10) Hypertension: Problem details: Continue home medications. HCTZ has been on hold given mild elevation in creatinine Status: Chronic Plan Awaiting placement, manager social work assisting. Possibly Saturday evaluation with [facility] Time Spent With Patient Total time spent: Total time spent caring for the patient today was 45 minutes. This includes time spent for the visit reviewing the chart, time spent during the visit, time spent after the visit and documentation and planning in coordination of care. Subjective Date Seen: 11/17/23 Interval history: Patient is sitting up in bed this morning. Other than left mid thigh pain which began yesterday continues to do fine. No new complaints or concerns. No reports overnight. Remains vitally stable. Tolerating orals without nausea vomiting. Exam Narrative: Exam Narrative: PHYSICAL EXAM General: Pleasant, conversant, NAD HEENT: Normocephalic, atraumatic, sclera white, EOMI, oral mucosa moist Cardiovascular: RRR, S1S2. No pitting edema Pulmonary: CTA bilaterally without rhonchi, rales, expiratory wheezes. No dyspnea Abdominal: Soft, nondistended, NTTP Neurological: Alert, answering questions appropriately, cranial nerves intact, no focal findings Extremities: No gross joint deformity or swelling. No palpable bony pain of left femur with hip and knee in flexed position. Active flexion of hip recreates pain however. Skin: Warm, dry. Const: Vital Signs, click to edit/add: Vital Signs - 24 hr 11/15/23 11:36 11/15/23 15:15 11/15/23 15:15 Temperature 98 F 98.4 F Pulse Rate [Pulse Oximeter] 67 67 67 Respiratory Rate 18 18 18 Blood Pressure [Le ft Arm] 136/71 Blood Pressure [Ri ght Arm] 135/67 Pulse Oximetry 95 92 Oxygen Delivery Me thod Room Air Room Air 11/15/23 15:15 11/15/23 21:41 11/15/23 23:16 Temperature 98.9 F Pulse Rate [Pulse Oximeter] 88 Respiratory Rate 18 20 20 Blood Pressure [Le ft Arm] 149/81 H Blood Pressure [Ri ght Arm] Pulse Oximetry 92 96 96 Oxygen Delivery Me thod Room Air Room Air Room Air 11/16/23 00:46 11/16/23 04:28 04/20/24 07:33 Temperature 98.5 F 98.0 F 98.8 F Pulse Rate [Pulse Oximeter] 73 65 65 Respiratory Rate 20 16 16 Blood Pressure [Le ft Arm] 142/86 H 142/64 H Blood Pressure [Ri ght Arm] 156/66 H Pulse Oximetry 94 94 98 Oxygen Delivery Me thod Room Air Room Air Room Air 11/16/23 07:33 11/16/23 07:33 Temperature Pulse Rate [Pulse Oximeter] 65 Respiratory Rate 16 16 Blood Pressure [Le ft Arm] Blood Pressure [Ri ght Arm] Pulse Oximetry 98 Oxygen Delivery Me thod Room Air Labs Labs: Laboratory Results - last 24 hr 11/16/23 05:33 WBC 8.49 RBC 3.67 L Hgb 11.5 L Hct 36.1 L MCV 98 MCH 31 MCHC 32 Plt Count 171 Sodium 137 Potassium 3.7 Chloride 107 Carbon Dioxide 25 Anion Gap 5 L BUN 52 H Creatinine 1.8 H Estimated Creat Clear 28.37 Estimated GFR 36 Glucose 218 H Calcium 8.7
[2023-11-17 11:01] VITALS: BP 131/59; PULSE 58; RESP 18; TEMP 36.6; O2SAT 97
[2023-11-17] MEDS: LIDOCAINE 5% PATCH 1 PATCH TRANSDERMA (12:50)
[2023-11-17 15:22] VITALS: BP 136/63; PULSE 60; RESP 18; TEMP 36.8; O2SAT 94
--- NOTE | 2023-11-17 17:50 | PC.NURSE ---
End of Shift: Pt calm, cooperative, and pleasant. Pt oriented x3, with some delayed responses. Pt vitals WDL, lung sounds clear, BS active. Pt 1 assist, urinating well using urinal. Pt tolerating regular diet well. Pt blood sugars: 262, 234, 331. Pt IV intact and SL. Pt reports pain on left thigh, 1-3/10, scheduled Tylenol given, lidocaine patch left thigh. Pt has been up to chair for every meal.
[2023-11-17 19:00] VITALS: BP 127/72; PULSE 102; RESP 18; TEMP 36.7; O2SAT 95
[2023-11-17] MEDS: ATORVASTATIN CALCIUM 40 MG TABLET PO (20:09)
[2023-11-17] MEDS: ENOXAPARIN 30 MG/0.3ML INJ SUBCUT (20:10)
[2023-11-17 23:00] VITALS: BP 157/75; PULSE 63; RESP 18; O2SAT 90; O2SAT 95
[2023-11-18] VITALS (7 sets, daily range): BP systolic 120–155; BP diastolic 58–75; PULSE 64–79; RESP 16–18; TEMP 36.2–37.3; O2SAT 94–98
[2023-11-18 06:06] LABS: Chloride* 111 mmol/L (96-114); Sodium* 135 mmol/L (135-149)
[2023-11-18 06:08] LABS: Creatinine* 1.7 mg/dL (0.5-1.5); Est. Creatinine Clearance* 30.04; Estimated Glomerular Filt Rate 38 ml/min
[2023-11-18 06:09] LABS: Anion Gap 2 mEq/L (7-15); Blood Urea Nitrogen* 71 mg/dL (7-30); Calcium* 8.6 mg/dL (8.4-10.6); Carbon Dioxide* 22 mmol/L (20-32); Glucose* 234 mg/dL (60-115)
--- NOTE | 2023-11-18 07:31 | PC.NURSE ---
19-: pleasant and cooperative. A x 2 with SS/EZ stand. Rating pain 1/10 with scheduled Tylenol.
[2023-11-18] MEDS: INSULIN ASPART 100 UNIT/ML SUBCUT ×4 (08:22→21:25)
[2023-11-18] MEDS: PIOGLITAZONE HCL 15 MG TABLET 30 MG PO (08:23)
[2023-11-18] MEDS: FERROUS SULFATE 325 MG TABLET PO (08:23)
[2023-11-18] MEDS: METOPROLOL TARTRATE 25 MG TABLET PO ×2 (08:23→21:08)
[2023-11-18] MEDS: VENLAFAXINE HCL 37.5 MG TABLET PO (08:24)
[2023-11-18] MEDS: glipiZIDE XL 5 MG TAB PO (08:24)
[2023-11-18] MEDS: AMLODIPINE 10 MG TABLET PO (08:24)
[2023-11-18] MEDS: ACETAMINOPHEN 325 MG TABLET 650 MG PO ×4 (08:24→21:08)
[2023-11-18] MEDS: SENNOSIDES 1 TAB TABLET PO ×3 (08:24→16:46)
[2023-11-18] MEDS: MULTIVITAMIN/MINERALS 1 TABLET 1 TAB PO (08:24)
[2023-11-18] MEDS: ASPIRIN 81 MG TABLET EC PO (08:24)
[2023-11-18] MEDS: Vibegron [Gemtesa] 75 mg tablet 75 EACH PO (08:25)
[2023-11-18] MEDS: SODIUM CHLORIDE 0.9 % (FLUSH) 10 ML SYRINGE 5 ML IVF ×2 (08:25→21:08)
[2023-11-18] MEDS: timoloL maleate 0.5 % 1 DROP EYE-LEFT ×2 (08:32→21:09)
--- NOTE | 2023-11-18 09:53 | PC.SOCIAL ---
Addendum entered by DIANNA Deluca 11/18/23 15:51: Received a phone call from Caden in admissions at [facility] at [phone]. [facility] can accept pt for admission for tomorrow before 11:00 am. Pt will transport via non-emergency Ambulance due to fracture. Transport is set for 9:30 am. [facility] requests discharge orders two hours prior to pt's arrival. Orders can be secured emailed to Caden at [email or web address]. Completed preadmission screening. Confirmation #[id number]. Provided copy of PAS to [facility]. Provided update to charge nurse, pt's daughter, and pt. Provided a copy of important message from Medicare to pt. Original Note: Discharge planning- Met with pt's daughter, Chantell, to discuss discharge plans. Family requests that information be sent to [facility] and [facility] as family informs that they will tour both facilities this morning and have already spoken with admissions at both facilities and there are openings. Provided pt's daughter with writers phone number to call with any further information. Pt's daughter would like to explore the SNF's due to inpatient status and would not like to look at [facility] Enhanced Assisted Living at this time. Faxed referral to [facility] and [facility] at [phone] and secure e-mailed referral to [facility] admissions. Social work will continue to follow up as needed.
[2023-11-18] MEDS: LIDOCAINE 5% PATCH 1 PATCH TRANSDERMA (10:52)
--- NOTE | 2023-11-18 11:42 | P.IMPN_ITS ---
Progress Note: A&P Assessment and plan (1) Fractured pelvis: Problem details: 1. Acute nondisplaced fractures of the left inferior and superior pubic rami with extension into the left anterior acetabulum. Intact left proximal femur. 2. Subtle acute nondisplaced fracture of the inferior left sacroiliac joint. Discussed with Orthopedic Surgery, recommending WBAT with wheeled walker. Wheelchair if needed. PT/OT following environmental services technician for discharge needs. Currently working with family for potential placement at [facility], enhanced assisted living. Status: Acute (2) Left leg pain: Problem details: 11/15 complaining of left mid thigh pain. Plain film, reviewed by me, shows no obvious fracture, confirmed by Radiology Discussed with Orthopedic surgery, no palpable bony pain of left femur on exam. Flexion of hip/knee recreate pain. Consistent with referred pain of pelvic fracture. No new recommendations Lidocaine patch, p.r.n. pain medications (low doses narcotics to decrease fall risk, weakness, confusion - as discussed with family) Continue PT/OT as tolerated Status: Acute (3) Anemia: Problem details: Chronic stable anemia likely related to combination of factors including iron deficiency, CLL, chronic kidney disease. Monitor Status: Acute (4) BPH (benign prostatic hyperplasia): Problem details: Urinary urgency. Postvoid residual on 11/14/2023 was 0. Continue Gemtesa Status: Acute (5) CLL (chronic lymphocytic leukemia): Problem details: Long-term stable. No active treatment. Status: Acute (6) Chronic kidney disease (CKD) stage G3a/A2, moderately decreased glomerular filtration rate (GFR) between 45-59 mL/min/1.73 square meter and albuminuria creatinine ratio between 30-299 mg/g: Problem details: Mild bump in creatinine, baseline 1.4-1.6 Avoid nephrotoxic medications, will hold HCTZ for now Continue to monitor Status: Acute (7) Type 2 diabetes mellitus: Problem details: Most recent hemoglobin A1c June 2023 was 5.9 Hold home Jardiance, continue glipizide, pioglitazone Diabetic diet, glucose checks ACHS, ISS, monitor and adjust insulin as necessary Status: Acute (8) Presbyacusis: Problem details: Moderately severe hearing loss Status: Acute (9) Chronic constipation: Problem details: Aggressive use of laxatives while on opiates, continuing home bowel regimen and p.r.n.s Status: Acute (10) Hypertension: Problem details: Continue home medications. HCTZ has been on hold given mild elevation in creatinine Status: Chronic Plan 1. Reviewed with patient. 2. Answered his questions. 3. Patient agreeable to above stated plans and recommendations Time Spent With Patient Total time spent: 30 minute Subjective Date Seen: 11/18/23 Interval history: Hospital day 5. Generally stable. Continues to require support for ADLs particularly with transfers and ambulation. Pain adequately managed. Continues to express desire for increased support efforts in outpatient setting if at all possible. Exam Narrative: Exam Narrative: I examine him in his hospital room. Vision and hearing are grossly normal. Alert and oriented to self, place, time, situation. Friendly, cooperative. Lungs clear to auscultation. Heart tones with regular rhythm. Abdomen benign. Const: Vital Signs, click to edit/add: Vital Signs - 24 hr 11/17/23 15:22 11/17/23 15:22 11/17/23 15:22 Temperature 98.3 F Pulse Rate [Pulse Oximeter] 60 60 Respiratory Rate 18 18 18 Blood Pressure [Le ft Arm] 136/63 Pulse Oximetry 94 94 Oxygen Delivery Me thod Room Air Room Air 11/17/23 19:00 11/17/23 23:00 11/17/23 23:00 Temperature 98.1 F Pulse Rate [Pulse Oximeter] 102 H Respiratory Rate 18 18 18 Blood Pressure [Le ft Arm] 127/72 Pulse Oximetry 95 95 Oxygen Delivery Oh thod Room Air Room Air 11/17/23 23:00 11/18/23 02:35 11/18/23 07:29 Temperature 97.7 F 98.0 F Pulse Rate [Pulse Oximeter] 63 79 77 Respiratory Rate 18 18 18 Blood Pressure [Le ft Arm] 157/75 H 143/65 H 155/64 H Pulse Oximetry 90 94 98 Oxygen Delivery Me thod Room Air Room Air Room Air 11/18/23 07:29 11/18/23 10:56 Temperature 97.2 F L Pulse Rate [Pulse Oximeter] 64 Respiratory Rate 18 18 Blood Pressure [Le ft Arm] 142/58 H Pulse Oximetry 98 96 Oxygen Delivery Me thod Room Air Room Air Labs Labs: Laboratory Results - last 24 hr 11/18/23 05:39 Sodium 135 Potassium 4.0 Chloride 111 Carbon Dioxide 22 Anion Gap 2 L BUN 71 H Creatinine 1.7 H Estimated Creat Clear 30.04 Estimated GFR 38 Glucose 234 H Calcium 8.6
--- NOTE | 2023-11-18 18:46 | PC.NURSE ---
Pt alert and oriented with some confusion. Pt had complaints of pain ranging from 0-2; see EMAR for intervention. Pt has lidocaine patch on left hip. Pt assist of two with the andra-steady. Pt discharging to [facility] in [place] tomorrow 11/19/23 at 0930am.
[2023-11-18] MEDS: ENOXAPARIN 30 MG/0.3ML INJ SUBCUT (21:08)
[2023-11-18] MEDS: ATORVASTATIN CALCIUM 40 MG TABLET PO (21:08)
[2023-11-19 02:33] VITALS: BP 146/72; PULSE 72; RESP 16; TEMP 36.8; O2SAT 96
[2023-11-19] MEDS: OXYCODONE 5 MG TABLET 2.5 MG PO (05:14)
--- NOTE | 2023-11-19 05:37 | PC.NURSE ---
End of shift report [id number]: Pleasant and cooperative with cares. Pain to left hip/leg managed well with current regimen. CMS to LLE intact, patient does report referred pain from hip down into knee and ankle. Transfers with assist x 2 with andra vaughn.
[2023-11-19 08:05] VITALS: BP 148/71; PULSE 77; RESP 16; TEMP 36.8; O2SAT 98
[2023-11-19 08:12] VITALS: RESP 16; O2SAT 98
[2023-11-19 08:19] VITALS: BP 148/71; PULSE 77; RESP 16; TEMP 36.8
[2023-11-19] MEDS: INSULIN ASPART 100 UNIT/ML SUBCUT (08:29)
[2023-11-19] MEDS: Vibegron [Gemtesa] 75 mg tablet 75 EACH PO (08:30)
[2023-11-19] MEDS: PIOGLITAZONE HCL 15 MG TABLET 30 MG PO (08:30)
[2023-11-19] MEDS: ACETAMINOPHEN 325 MG TABLET 650 MG PO (08:31)
[2023-11-19] MEDS: AMLODIPINE 10 MG TABLET PO (08:31)
[2023-11-19] MEDS: glipiZIDE XL 5 MG TAB PO (08:31)
[2023-11-19] MEDS: METOPROLOL TARTRATE 25 MG TABLET PO (08:31)
[2023-11-19] MEDS: ASPIRIN 81 MG TABLET EC PO (08:31)
[2023-11-19] MEDS: timoloL maleate 0.5 % 1 DROP EYE-LEFT (08:32)
[2023-11-19] MEDS: SENNOSIDES 1 TAB TABLET PO (08:32)
[2023-11-19] MEDS: MULTIVITAMIN/MINERALS 1 TABLET 1 TAB PO (08:32)
[2023-11-19] MEDS: VENLAFAXINE HCL 37.5 MG TABLET PO (08:36)
[2023-11-19] MEDS: LIDOCAINE 5% PATCH 1 PATCH TRANSDERMA (09:36)
--- NOTE | 2023-11-19 10:03 | PC.SOCIAL ---
Discharge planning- Discussed with pt's daughter Chantell the fees associated with EMS to transport. Pt does not qualify for EMS fee to be covered under medicare benefits. Family agreed to pay fee and signed EMS fee acknowledgement form. Provided form to nursing. Orders were sent to [facility] by charge nurse.
--- NOTE | 2023-11-19 11:17 | PC.NURSE ---
Pt alert and oriented with some confusion. Pt had complaints of pain ranging from 0-2; see EMAR for intervention. Pt has lidocaine patch on left hip. Pt?s IV removed; catheter intact. Pt assist of two with the pavel. Pt discharged to [facility] in [place] tomorrow 1010am via EMS. Nurse to Nurse report done with Yolis ROMERO.?
--- NOTE | 2023-11-19 16:08 | P.DS_ITS ---
DS: Providers Provider Date Seen: 11/19/23 Date of admission: 11/16/23 08:08 Primary care physician: HERMAN COLE DO Admitting Clinician: Jericho Stone MD Consults: 11/14/23 20:58 Consult to Occupational Therapy [CONS] Routine Comment: Reason(s) for OT Consult:: Evaluate and Treat Any Restrictions?:: No Restrictions Consult to Physical Therapy [CONS] Routine Comment: Reason(s) for PT Consult:: Evaluate and Treat Any Restrictions?:: No Restrictions Consult to Home Advisor [CONS] Routine Comment: Reason for Consult:: Discharge Planning Needs 11/15/23 07:16 Consult to Physician [CONS] Routine Comment: Pelvic fracture into anterior acetabulum Consulting Provider: Orthopedics, [facility] Has provider been notified: No Attending Physician on discharge: Micha Lemons MD Date of Discharge: 11/19/23 DS: Diagnosis Discharge Diagnosis (1) Fractured pelvis: Status: Acute Problem details: 1. Acute nondisplaced fractures of the left inferior and superior pubic rami with extension into the left anterior acetabulum. Intact left proximal femur. 2. Subtle acute nondisplaced fracture of the inferior left sacroiliac joint. Discussed with Orthopedic Surgery, recommending WBAT with wheeled walker. Wheelchair if needed. PT/OT following in hospital Will transfer to [facility] on 11/19/23 for TCU care (2) Left leg pain: Status: Acute Problem details: 11/15 complaining of left mid thigh pain. Plain film, reviewed by me, shows no obvious fracture, confirmed by Radiology Discussed with Orthopedic surgery, no palpable bony pain of left femur on exam. Flexion of hip/knee recreate pain. Consistent with referred pain of pelvic fracture. No new recommendations Lidocaine patch, p.r.n. pain medications (low doses narcotics to decrease fall risk, weakness, confusion - as discussed with family) Continue PT/OT as tolerated (3) Chronic constipation: Status: Acute Problem details: Aggressive use of laxatives while on opiates, continuing home bowel regimen and p.r.n.s (4) Anemia: Status: Acute Problem details: Chronic stable anemia likely related to combination of factors including iron deficiency, CLL, chronic kidney disease. Monitor (5) CLL (chronic lymphocytic leukemia): Status: Acute Problem details: Long-term stable. No active treatment. (6) Chronic kidney disease (CKD) stage G3a/A2, moderately decreased glomerular filtration rate (GFR) between 45-59 mL/min/1.73 square meter and albuminuria creatinine ratio between 30-299 mg/g: Status: Acute Problem details: Mild bump in creatinine, baseline 1.4-1.6 Avoid nephrotoxic medications, will hold HCTZ for now Continue to monitor (7) Type 2 diabetes mellitus: Status: Acute Problem details: Most recent hemoglobin A1c June 2023 was 5.9 Hold home Jardiance, continue glipizide, pioglitazone Diabetic diet, glucose checks ACHS, ISS, monitor and adjust insulin as necessary (8) Hypertension: Status: Chronic Problem details: Continue home medications. HCTZ has been on hold given mild elevation in creatinine (9) Weakness: Status: Acute (10) BPH (benign prostatic hyperplasia): Status: Acute Problem details: Urinary urgency. Postvoid residual on 11/14/2023 was 0. Continue Gemtesa (11) Generalized anxiety disorder: Status: Acute (12) Major depression: Status: Acute (13) GERD (gastroesophageal reflux disease): Status: Acute DS: Summary Hospital Course Hospital Course: Admission history of present illness: Carlos Hill is a 88 year old male with CLL, diabetes, hypertension who fell around noon today when he lost his balance injuring his left hip. He reports no loss of consciousness. When he fell he reports that his head slightly bumped against a cabinet but there was no pain or injury. He was feeling well before falling. He believes he just lost his balance. He normally walks with a 2 wheeled walker but does have some balance problems. Since he fell he has been able to bear weight but it is very painful in the left groin area. Ortho consultation concluded the following: (1) Fractured pelvis: Problem comment: 1. Acute nondisplaced fractures of the left inferior and superior pubic rami with extension into the left anterior acetabulum. Intact left proximal femur. 2. Subtle acute nondisplaced fracture of the inferior left sacroiliac joint. Status: Acute Assessment and Plan: Pelvic CT was reviewed with Carlos and his daughter Patricia. Non-operative treatment is recommended. PT/OT consults. May WBAT with walker and 1 person assist with gait belt. For pain management, ice, Oxycodone and Tylenol PRN. Carlos's pain is likely to be lessened with ambulation as opposed to being seated on his pelvis. Social consult for discharge planning. Patient will likely require TCU or Rehab placement upon discharge. Follow-up with myself or Dr. Renee in 2 weeks for clinical re-evaluation. Time Spent with Patient Time attestation: Total time spent providing and/or coordinating discharge services: Exam Narrative: Exam Narrative: I examine him in his hospital room. Vision and hearing are grossly normal. Alert and oriented to self, place, time, situation. Friendly, cooperative. Lungs clear to auscultation. Heart tones with regular rhythm. Abdomen benign. Const: Vital Signs, click to edit/add: Vital Signs - 24 hr 11/18/23 19:00 11/18/23 23:00 11/18/23 23:00 Temperature 98.3 F Pulse Rate Pulse Rate [Pulse Oximeter] 73 64 Respiratory Rate 18 16 16 Blood Pressure Blood Pressure [Le ft Arm] Blood Pressure [Ri ght Arm] 133/63 Pulse Oximetry 97 97 Oxygen Delivery Me thod Room Air Room Air 11/18/23 23:00 11/19/23 02:33 11/19/23 08:05 Temperature 99.1 F 98.3 F 98.2 F Pulse Rate Pulse Rate [Pulse Oximeter] 64 72 77 Respiratory Rate 16 16 16 Blood Pressure Blood Pressure [Le ft Arm] 148/71 H Blood Pressure [Ri ght Arm] 146/75 H 146/72 H Pulse Oximetry 97 96 98 Oxygen Delivery Me thod Room Air Room Air 11/19/23 08:12 11/19/23 08:19 Temperature 98.2 F Pulse Rate 77 Pulse Rate [Pulse Oximeter] Respiratory Rate 16 16 Blood Pressure 148/71 H Blood Pressure [Le ft Arm] Blood Pressure [Ri ght Arm] Pulse Oximetry 98 Oxygen Delivery Me thod Room Air Discharge Plan Discharge Disposition: Xfer SNF Discharge Location: [facility] Date of Admission: 11/16/23 08:08 Attending Provider on Discharge: Micha Lemons Consulting Providers: Wilian Patel; Sharon Wilkins; Manjit Renee; Yamileth Mukherjee; Daniel Barba; Marty Piedra Primary Care Provider: HERMAN COLE Condition: Stable Anticipated Discharge Date/Time: 11/19/23 09:00 Discharge Medications: New lidocaine 5 % Adhesive Patch,Medicated 1 patch transdermal Q24H Qty: 15 0RF oxycodone 5 mg Tablet 2.5 mg PO Q6H PRN (Reason: Pain) Qty: 10 0RF Continued Jardiance 10 mg tablet 10 mg PO DAILY glipizide 5 mg tablet extended release 24hr 5 mg PO DAILY senna 8.6 mg capsule 8.6 mg PO TIDWM ferrous sulfate 325 mg (65 mg iron) tablet 325 mg PO .Twice weekly multivitamin [Daily Multi-Vitamin] Tablet 1 tab PO DAILY venlafaxine 37.5 mg tablet 37.5 mg PO DAILY amlodipine 10 mg tablet 10 mg PO DAILY atorvastatin 40 mg tablet 40 mg PO HS metoprolol tartrate 25 mg tablet 25 mg PO BID pioglitazone 30 mg tablet 30 mg PO DAILY timolol maleate 0.5 % drops 1 drp OPHTHALMIC (EYE) BID Patient Comments: INSTILL 1 DROP IN LEFT EYE TWICE DAILY Gemtesa 75 mg tablet 75 mg PO DAILY Patient Comments: TAKE ONE TABLET BY MOUTH ONCE DAILY. aspirin [Adult Aspirin Regimen] 81 mg tablet,delayed release (DR/EC) 81 mg PO DAILY Discontinued hydrochlorothiazide 25 mg tablet 25 mg PO DAILY Discharge Orders: Discharge Order (Routine); Ordered 11/19/23 Ordered By: Micha Lemons Activity Level: Activity as Tolerated, Weight Bearing as Tolerated and Use Walker Discharge Diet: 2 gm Sodium Follow Up Appointments: Jesus Zapien MD [Referring] - HERMAN COLE DO [Primary Care Provider] - Forms: [facility] Info Instructions Admit to: SNF Discharge Potential: Fair Length of Stay: <30 days Can use facility standing orders?: Yes Code Status: DNR/DNI TEDs: Bilateral Knee Rehab Potential: Fair Therapy: Physical Therapy and Occupational Therapy Therapy Orders: Evaluate and Treat Oxygen: No Urinary Catheter: No Orders are good >30 days: Yes Signature: Micha Lemons
== END 2023-11-19 10:10 | DRG 535 ==
LOC: ED 19:35 → MEDSURG 19:51
PROVIDERS: Physician Assistant; Admitting Provider Family Medicine; Emergency Provider Emergency Medicine Emergency Medical Services; PCP Student in an Organized Health Care Education/Training Program; Visit Provider Family Medicine
DX: S32.512A Fracture of superior rim of left pubis, initial encounter for closed fracture (principal); S32.492A Other specified fracture of left acetabulum, initial encounter for closed fracture; S32.19XA Other fracture of sacrum, initial encounter for closed fracture; C91.10 Chronic lymphocytic leukemia of B-cell type not having achieved remission; W07.XXXA Fall from chair, initial encounter; M79.652 Pain in left thigh; D64.9 Anemia, unspecified; K59.09 Other constipation; I12.9 Hypertensive chronic kidney disease with stage 1 through stage 4 chronic kidney disease, or unspecified chronic kidney disease; E11.22 Type 2 diabetes mellitus with diabetic chronic kidney disease; N18.31 Chronic kidney disease, stage 3a; Z79.84 Long term (current) use of oral hypoglycemic drugs; N40.1 Benign prostatic hyperplasia with lower urinary tract symptoms; R39.15 Urgency of urination; H91.13 Presbycusis, bilateral; K21.9 Gastro-esophageal reflux disease without esophagitis; F41.1 Generalized anxiety disorder; F32.9 Major depressive disorder, single episode, unspecified
CPT/HCPCS: 36415; 51798; 72192; 73502; 73552; 80048; 81001; 81003; 82962; 85025; 85027; 90714; 97110; 97116; 97162; 97165; 97530; 97535; 99285; A9153; A9270; G0378; J1650

== ENCOUNTER 2023-11-19 10:13 | Outpatient (CLI) | payer MEDICARE, BC, SELFPAY | END 2023-11-19 10:14 | disposition home or self-care (01) | LOC: AMB 12-02 18:09 | PROVIDERS: PCP Student in an Organized Health Care Education/Training Program; Visit Provider Family Medicine | DX: S32.502 Unspecified fracture of left pubis (principal); Z99.3 Dependence on wheelchair | CPT/HCPCS: A0425; A0428 ==

== ENCOUNTER 2024-01-04 06:18 | Outpatient (CLI) | payer MEDICARE, BC, SELFPAY | END 2024-01-04 06:19 | disposition home or self-care (01) | LOC: AMB 01-05 21:58 | PROVIDERS: PCP Student in an Organized Health Care Education/Training Program; Visit Provider Family Medicine | DX: R53.1 Weakness (principal) | CPT/HCPCS: A0998 ==

== ENCOUNTER 2024-12-31 20:20 | Outpatient (CLI) | payer MEDICARE, BC, SELFPAY | END 2024-12-31 20:21 | disposition home or self-care (01) | LOC: AMB 01-01 10:26 | PROVIDERS: PCP Student in an Organized Health Care Education/Training Program; Visit Provider Family Medicine | DX: R53.1 Weakness (principal) | CPT/HCPCS: A0998 ==